=== PATIENT | male | born 1965 | race Caucasian/White ===

== ENCOUNTER 2020-10-21 10:52 | Outpatient (CLI) | payer OTHER, SELFPAY | END 2020-10-21 10:53 | disposition home or self-care (01) | LOC: RAD 10-22 20:24 | PROVIDERS: Family Provider Nurse Practitioner; PCP Nurse Practitioner; Visit Provider Internal Medicine Rheumatology | DX: M1A.9XX1 Chronic gout, unspecified, with tophus (tophi) (principal); M19.90 Unspecified osteoarthritis, unspecified site; Z79.899 Other long term (current) drug therapy; Z11.59 Encounter for screening for other viral diseases; Z11.1 Encounter for screening for respiratory tuberculosis; N18.30 Chronic kidney disease, stage 3 unspecified; Z71.89 Other specified counseling | CPT/HCPCS: 99204 ==

== ENCOUNTER 2020-10-21 12:24 | Outpatient (CLI) | payer OTHER, SELFPAY ==
--- NOTE | 2020-10-21 12:38 | XRR_ITS ---
PROCEDURE INFORMATION: Exam: XR Left Hand Exam date and time: 10/21/2020 12:38 PM Age: 55 years old Clinical indication: Condition or disease; Other: Gout, ; additional info: M10.9 - gout, unspecified TECHNIQUE: Imaging protocol: XR Left hand. Views: 3 or more views. COMPARISON: No relevant prior studies available. FINDINGS: Bones/joints: Negative for acute bony abnormality. Soft tissues: A few scattered soft tissue metallic foreign bodies seen in the proximal index finger and near the 1st metacarpal. XR/XR hand LT min 3V* [id number] IMPRESSION: 1. No acute bone abnormality. 2. Metallic densities near the proximal index finger and 1st metacarpal
--- NOTE | 2020-10-21 12:38 | XRR_ITS ---
PROCEDURE INFORMATION: Exam: XR Right Foot Exam date and time: 10/21/2020 12:38 PM Age: 55 years old Clinical indication: Condition or disease; Other: Gout, ; additional info: M10.9 - gout, unspecified TECHNIQUE: Imaging protocol: XR Right foot. Views: 3 or more views. COMPARISON: No relevant prior studies available. FINDINGS: Bones/joints: Normal. Soft tissues: Normal. XR/XR foot RT min 3V* [id number] IMPRESSION: No acute findings.
--- NOTE | 2020-10-21 12:38 | XRR_ITS ---
PROCEDURE INFORMATION: Exam: XR Right Hand Exam date and time: 10/21/2020 12:38 PM Age: 55 years old Clinical indication: Condition or disease; Other: Gout; Additional info: M10.9 - gout, unspecified TECHNIQUE: Imaging protocol: XR Right hand. Views: 3 or more views. COMPARISON: No relevant prior studies available. FINDINGS: Bones/joints: Subchondral cyst is seen near the distal right radius corresponding to benign etiology. Soft tissues: Normal. XR/XR hand RT min 3V* [id number] IMPRESSION: 1. No acute bone abnormality 2. Subchondral bone cyst distal right radius.
--- NOTE | 2020-10-21 12:38 | XRR_ITS ---
PROCEDURE INFORMATION: Exam: XR Left Foot Exam date and time: 10/21/2020 12:38 PM Age: 55 years old Clinical indication: Condition or disease; Other: Gout, ; additional info: M10.9 - gout, unspecified TECHNIQUE: Imaging protocol: XR Left foot. Views: 3 or more views. COMPARISON: No relevant prior studies available. FINDINGS: Bones/joints: Negative for acute bony abnormality Soft tissues: Normal. XR/XR foot LT min 3V* [id number] IMPRESSION: No acute findings.
[2020-10-21 13:34] LABS: Basophils % 0.3 %; Eosinophils # 0.2 10^3/uL (0.0-0.8); Eosinophils % 2.8 %; Hematocrit 41.5 % (42.0-52.0); Hemoglobin 14.1 g/dL (11.7-16.6); Lymphocytes # 1.5 10^3/uL (0.8-4.8); Mean Corpuscular Hemoglobin 30.1 pg (28.0-34.0); Mean Corpuscular Volume 88.7 fl (80-94); Mean Platelet Volume 10.1 fL (7.4-10.4); Monocytes # 0.9 10^3/uL (0.2-0.9); Monocytes % 10.8 %; Neutrophils # 5.26 10^3/uL (1.8-7.7); Neutrophils % 66.6 %; Nucleated Red Blood Cells % 0 %; Platelet Count 254 10^3/cmm (130-400); Red Blood Count 4.68 10^6/uL (4.1-5.3); Red Cell Distribution Width 12.3 % (12.1-15.1); White Blood Count 7.9 10^3/uL (4.0-10.0)
[2020-10-21 13:52] LABS: Alanine Aminotransferase 17 U/L (0-41); Albumin Level 4.2 g/dL (3.5-5.2); Alkaline Phosphatase 101 IU/L (40-130); Aspartate Amino Transferase 15 U/L (0-40); C Reactive Protein 10.7 mg/L (0.0-4.9); Globulin 2.4 g/dL (1.3-4.6); Glomerular Filtration Rate 42.1 mL/min (90-130); Total Bilirubin 0.3 mg/dL (0.15-1.2); Total Protein 6.6 g/dL (6.6-8.7); Uric Acid 8.7 mg/dL (3.4-7.0)
[2020-10-21 14:08] LABS: 25 Hydroxy Vitamin D 19 ng/mL (30-100); Hepatitis B Core AB, Total Non-Reactive (Nonreactive); Hepatitis B Surface Antigen Non-Reactive (Nonreactive); Hepatitis C Virus Antibody Non-Reactive (Nonreactive)
[2020-10-21 14:30] LABS: Erythrocyte Sedimentation Rate 26 mm/hr (0-10)
[2020-10-23 09:52] LABS: Cyclic Citrullinated Peptide <16 UNITS
[2020-10-23 14:26] LABS: Quantiferon Mitogen 7.77 IU/mL; Quantiferon Nil 0.02 IU/mL; Quantiferon TB Gold NEGATIVE (NEGATIVE)
== END 2020-10-21 12:25 | disposition home or self-care (01) ==
PROVIDERS: PCP Nurse Practitioner; Visit Provider Internal Medicine Rheumatology
DX: M10.9 Gout, unspecified (principal); M19.90 Unspecified osteoarthritis, unspecified site; Z79.899 Other long term (current) drug therapy; Z11.59 Encounter for screening for other viral diseases; Z11.1 Encounter for screening for respiratory tuberculosis
CPT/HCPCS: 73130; 73630; 80076; 82306; 82565; 84550; 85025; 85651; 86140; 86431; 86480; 86704; 86803; 87340

== ENCOUNTER 2021-04-05 02:56 | Inpatient (IN) | payer OTHER, SELFPAY ==
[2021-04-05] VITALS (11 sets, daily range): BP systolic 139–159; BP diastolic 89–105; PULSE 48–64; RESP 12–20; TEMP 36.3–37.1; O2SAT 87–97; BMI 34.4
--- NOTE | 2021-04-05 03:19 | XRR_ITS ---
PROCEDURE INFORMATION: Exam: XR Chest Exam date and time: 04/05/2021 3:19 AM Age: 55 years old Clinical indication: Patient HX: C/O chest pain radiating into both shoulders. ; Additional info: Cp TECHNIQUE: Imaging protocol: XR of the chest. Views: 1 view. COMPARISON: No relevant prior studies available. FINDINGS: Lungs: Unremarkable. No consolidation. Pleural spaces: Unremarkable. No pleural effusion. No pneumothorax. Heart/Mediastinum: Unremarkable. No cardiomegaly. Bones/joints: Unremarkable. XR/XR chest 1V portable [id number] IMPRESSION: No acute findings.
--- NOTE | 2021-04-05 03:19 | ECG_ITS ---
[facility] Test Date: 2021-04-05 Pat Name: Emery Davenport Department: Room: Gender: Male Health Inspector: : 1965 Requested By: Dontrell Garcia Order Number: [id number] Tatum MD: Gregory Trujillo M.D. Measurements Intervals [place] Rate: 43 P: 34 NM: 165 QRS: -3 QRSD: 99 T: 55 QT: 478 QTc: 409 Interpretive Statements SINUS BRADYCARDIA No previous ECG available for comparison Electronically Signed On 04-07-2021 8:54:30 BLUEPRINT BLOCKER by Gregory Trujillo M.D. [id number]
--- NOTE | 2021-04-05 03:48 | PC.NURSE ---
patient received with c/o left chest and shoulder pain that started last night around 2100. reports pulling carpet last night prior to pain starting. reports taking prescriptions as directed for HTN. states nausea started at 0200. speech clear, sentences complete. gives short 1-2 work answers and many times the will answer for him.
[2021-04-05 03:55] LABS: Basophils % 0.2 %; Eosinophils # 0.2 10^3/uL (0.0-0.8); Eosinophils % 1.7 %; Hematocrit 46.7 % (42.0-52.0); Hemoglobin 15.7 g/dL (11.7-16.6); Lymphocytes # 2.7 10^3/uL (0.8-4.8); Lymphocytes % 21.3 %; Mean Corpuscular HGB Conc 33.6 g/dL (30.0-36.0); Mean Corpuscular Volume 89.1 fl (80-94); Mean Platelet Volume 10.1 fL (7.4-10.4); Monocytes # 0.9 10^3/uL (0.2-0.9); Monocytes % 7.5 %; Neutrophils # 8.61 10^3/uL (1.8-7.7); Neutrophils % 68.7 %; Nucleated Red Blood Cells % 0 %; Platelet Count 267 10^3/cmm (130-400); Red Blood Count 5.24 10^6/uL (4.1-5.3); Red Cell Distribution Width 12.5 % (12.1-15.1); White Blood Count 12.5 10^3/uL (4.0-10.0)
[2021-04-05 04:24] LABS: D Dimer 0.38 ug/mIFEU (0-0.59)
--- NOTE | 2021-04-05 04:27 | W.ED.CHESTPA ---
HPI - Chest Pain General: Chief Complaint: Chest Pain Stated Complaint: Possile Heart Attach Time Seen by Provider: 04/05/21 03:19 History of Present Illness: 55-year-old male with no prior history of coronary disease. He does have a history of hypertension. He began to have chest pain last night after pulling carpet. Pain continued despite rest. Pain is across his chest. It is nonradicular. He is nauseated and mildly short of breath. Minimal cough. No swelling to his extremities. MD complaint: chest pain Pertinent past history: other Onset (ago): hour(s) Timing of current episode: constant Prior episodes: No Onset: during exertion Pain location: substernal, left chest and right chest Pain radiation: none Severity: moderate Quality: aching Relieving factors: nothing Exacerbating factors: nothing Associated symptoms: Reports dyspnea and nausea; Deny abdominal pain, diaphoresis, fever(s), leg edema, palpitations or vomiting Treatment prior to arrival: none Risk Factors: Coronary artery disease risk factors: hypertension Review of Systems Const: Denies: fever(s) or diaphoresis Card: Denies: palpitations Resp: Reports: dyspnea GI: Reports: nausea; Denies: abdominal pain or vomiting [facility], [facility] ED PFSH: Medical History CKD (chronic kidney disease) stage 3, GFR 30-59 ml/min Gout, tophaceous High risk medication use Immunization counseling Inflammatory arthritis Family History Other CAD (coronary artery disease) Cancer Diabetes Gout Hypertension Denies family history of Rheumatoid arthritis Lupus Hyperlipidemia Chronic kidney disease (CKD) Lung disease Stroke Social History Smoking and tobacco status: never smoked Alcohol intake: never History of recent travel: No Physical Exam HENMT: COMMON NORMALS: normocephalic, atraumatic and Normal external nose present HEAD & SCALP: normocephalic and atraumatic NOSE: Normal external nose present and Normal nares present Eye: COMMON NORMALS: Equal, round and reactive pupils present and EOMs intact bilaterally PUPIL: Yes Equal, round and reactive pupils present Resp: COMMON NORMALS: normal respiratory effort, No use of accessory muscles and clear to auscultation bilaterally AUSCULTATION: clear to auscultation bilaterally Cardio: COMMON NORMALS: regular rate and regular rhythm RATE: regular rate RHYTHM: regular rhythm GI: COMMON NORMALS: Normal to inspection, nondistended, normoactive bowel sounds present and Soft to palpation PALPATION: Yes Soft to palpation Extremity: GENERAL: No edema Neuro: THEODORE COMA SCALE: document GCS findings [place] coma scale eye opening: Spontaneous Theodore coma scale verbal response: Orientated Theodore coma scale motor response: Obey commands Theodore coma scale total score: 15 Course Consultations: Consultation #1: angelo Time: 06:26 Vital Signs: Vital signs: Vital Signs Temperature 97.3 F L 04/05/21 02:58 Pulse Rate 48 L 04/05/21 02:58 Respiratory Rate 20 H 04/05/21 04:39 Blood Pressure 159/105 04/05/21 02:58 Pulse Oximetry 95 04/05/21 02:58 MDM - Chest Pain Medical Decision Making 55-year-old male presenting with chest pain. EKG shows a sinus bradycardia with mild ST depression, no ST elevation. [place] is normal. Creatinine is 2. Hemoglobin is normal. Chest x-ray is negative. First troponin is 17, with a delta of 4. Pain improved with nitro and morphine initially, but then returned. Nitroglycerin given again, and pain improved, but now returning again. Will place on nitroglycerin topically. He has had aspirin. Will observe. Echocardiogram is ordered. Lab Data : 04/05/21 03:33 04/05/21 03:33 Radiology Impressions Chest X-Ray 04/05/21 03:19 IMPRESSION: No acute findings. Laboratory Results WBC 12.5 10^3/uL (4.0-10.0) H 04/05/21 03:33 RBC 5.24 10^6/uL (4.1-5.3) 04/05/21 03:33 Hgb 15.7 g/dL (11.7-16.6) 04/05/21 03:33 Hct 46.7 % (42.0-52.0) 04/05/21 03:33 MCV 89.1 fl (80-94) 04/05/21 03:33 MCH 30.0 pg (28.0-34.0) 04/05/21 03:33 MCHC 33.6 g/dL (30.0-36.0) 04/05/21 03:33 RDW 12.5 % (12.1-15.1) 04/05/21 03:33 Plt Count 267 10^3/cmm (130-400) 04/05/21 03:33 MPV 10.1 fL (7.4-10.4) 04/05/21 03:33 Neut % (Auto) 68.7 % 04/05/21 03:33 Lymph % (Auto) 21.3 % 04/05/21 03:33 Sumner % (Auto) 7.5 % 04/05/21 03:33 Eos % (Auto) 1.7 % 04/05/21 03:33 Baso % (Auto) 0.2 % 04/05/21 03:33 Neut # (Auto) 8.61 10^3/uL (1.8-7.7) H 04/05/21 03:33 Lymph # (Auto) 2.7 10^3/uL (0.8-4.8) 04/05/21 03:33 [place]ner # (Auto) 0.9 10^3/uL (0.2-0.9) 04/05/21 03:33 Eos # (Auto) 0.2 10^3/uL (0.0-0.8) 04/05/21 03:33 Baso # (Auto) 0.0 10^3/uL (0.0-0.1) 04/05/21 03:33 Nucleated RBC % (auto) 0 % 04/05/21 03:33 Nucleated RBCs # 0.0 /100WBC 04/05/21 03:33 D-Dimer 0.38 ug/mIFEU (0-0.59) 04/05/21 03:33 Sodium 136 mmol/L (136-145) 04/05/21 03:33 Potassium 3.9 mmol/L (3.5-5.1) 04/05/21 03:33 Chloride 98 mmol/L (98-107) 04/05/21 03:33 Carbon Dioxide 23 mmol/L (22-29) 04/05/21 03:33 Anion Gap 18.9 (5-19) 04/05/21 03:33 BUN 30 mg/dL (6-20) H 04/05/21 03:33 Creatinine 2.1 mg/dL (0.7-1.2) H 04/05/21 03:33 GFR Calculation 33.0 mL/min (90-130) L 04/05/21 03:33 Glucose 327 mg/dL (65-115) H 04/05/21 03:33 Calculated Osmolality 301 mOsm/kg (285-295) H 04/05/21 03:33 Calcium 8.9 mg/dL (8.5-10.5) 04/05/21 03:33 Total Bilirubin 0.3 mg/dL (0.15-1.2) 04/05/21 03:33 AST 16 U/L (0-40) 04/05/21 03:33 ALT 21 U/L (0-41) 04/05/21 03:33 Alkaline Phosphatase 96 IU/L (40-130) 04/05/21 03:33 Troponin T Baseline 17 ng/L (0-15) H 04/05/21 03:33 Troponin T 120 Minute 20.95 ng/L (0-15) H 04/05/21 05:19 Delta Troponin T 3.95 ABS# (0-10) 04/05/21 05:19 NT-Pro-B Natriuret Pep 217 pg/mL (0-125) H 04/05/21 03:33 Total Protein 7.3 g/dL (6.6-8.7) 04/05/21 03:33 Albumin 4.3 g/dL (3.5-5.2) 04/05/21 03:33 Globulin 3.0 g/dL (1.3-4.6) 04/05/21 03:33 Discharge Plan Discharge Patient Disposition: Placed in Observation Clinical Impression: Chest pain Coding Level of Care Code ED Database Programmer for Geovany Fwd Exam Detailed
[2021-04-05 04:32] LABS: Troponin(5th) Baseline 17 ng/L (0-15)
[2021-04-05] MEDS: morphine 4 mg/mL SDV 1 mL IVP (04:39)
[2021-04-05] MEDS: aspirin 325 mg Tablet PO (04:39)
[2021-04-05] MEDS: nitroglycerin 0.4 mg sublingual Tablet SUBLINGUAL (04:40)
[2021-04-05] MEDS: ondansetron 2 mg/ML SDV 2 mL 4 MG IVP ×2 (04:40→19:29)
[2021-04-05 04:42] LABS: Alanine Aminotransferase 21 U/L (0-41); Albumin Level 4.3 g/dL (3.5-5.2); Alkaline Phosphatase 96 IU/L (40-130); Aspartate Amino Transferase 16 U/L (0-40); Blood Urea Nitrogen 30 mg/dL (6-20); Calcium 8.9 mg/dL (8.5-10.5); Carbon Dioxide 23 mmol/L (22-29); Chloride 98 mmol/L (98-107); Glucose 327 mg/dL (65-115); NT Pro B Type Natriuretic Pept 217 pg/mL (0-125); Osmolality Calculated 301 mOsm/kg (285-295); Sodium 136 mmol/L (136-145); Total Bilirubin 0.3 mg/dL (0.15-1.2); Total Protein 7.3 g/dL (6.6-8.7)
[2021-04-05 04:43] LABS: Anion Gap 18.9 (5-19); Potassium 3.9 mmol/L (3.5-5.1)
--- NOTE | 2021-04-05 05:19 | ECG_ITS ---
[facility] Test Date: 2021-04-05 Pat Name: Emery Davenport Department: Room: Gender: Male Bicycle Racer: : 1965 Requested By: Dontrell Garcia Order Number: [id number] Deepti MD: Gregory Trujillo M.D. Measurements Intervals [place] Rate: 55 P: 34 CA: 181 QRS: 33 QRSD: 98 T: 78 QT: 445 QTc: 428 Interpretive Statements SINUS BRADYCARDIA MINIMAL ST DEPRESSION [0.025+ mV ST DEPRESSION] No previous ECG available for comparison Electronically Signed On 04-07-2021 9:04:16 STICKER OPERATOR by Gregory Trujillo M.D. [id number]
[2021-04-05 05:59] LABS: Troponin 5 2HR 20.95 ng/L (0-15)
[2021-04-05 06:02] LABS: Troponin 5 2HR Delta 3.95 ABS# (0-10)
--- NOTE | 2021-04-05 06:25 | USCV_ITS ---
Emery Davenport Age: 55 Gender: M : 1965 Exam Date: 04/05/2021 08:01 Ordering Phys: Dontrell Jaramillo DO Technologist: Ashley Krueger Exam Location: [facility] Indication: chest pain BP: 139 / 89 HR: 61 Rhythm: Sinus Technical Quality: Adequate MEASUREMENTS (Male / Female) Normal Values 2D ECHO LV Diastolic Diameter PLAX 5.2 cm 4.2 - 5.9 / 3.9 - 5.3 cm LV Systolic Diameter PLAX 3.7 cm IVS Diastolic Thickness 1.1 cm 0.6 - 1.0 / 0.6 - 0.9 cm IVS Systolic Thickness 1.3 cm LVPW Diastolic Thickness 1.3 cm 0.6 - 1.0 / 0.6 - 0.9 cm LVPW Systolic Thickness 1.5 cm RV Chamber Size 3.9 cm LVOT Diameter 2.0 cm LV Ejection Fraction 2D Teich 54.9 % LV Ejection Fraction MOD 2C 51.3 % LV Ejection Fraction 2C AL 52.6 % LA Diameter 4.4 cm LA Width 4.3 cm LA Height 4.4 cm RA Width 3.1 cm RA Height 4.4 cm Aorta at Sinotubular Diameter 2.8 cm M-MODE Aortic Annulus Diameter 3.4 cm LA Ao Ratio MM 1.3 MV E Point Septal Separation 0.8 cm DOPPLER AV Peak Velocity 101.0 cm/s LVOT Peak Velocity 83.0 cm/s AV Area Cont Eq vti 2.7 cm squared AV Area Cont Eq pk 2.7 cm squared MV Area PHT 3.9 cm squared Mitral E to A Ratio 0.7 MV E' Velocity 36.5 cm/s Mitral E to MV E' Ratio 9.7 Mitral E to LV E' Lateral Ratio 9.3 Mitral E to LV E' Septal Ratio 10.1 TV Peak E Velocity 47.0 cm/s PV Peak Velocity 60.0 cm/s RV Acceleration Time 0.1 s RV Ejection Time 0.4 s RV AcT/ET 0.3 FINDINGS Left Ventricle Normal left ventricular size. LV systolic function is normal with EF of 50-55%. Regional wall motion abnormalities can not be accurately assessed because of poor ultrasonic windows. Grade 1 diastolic dysfunction Right Ventricle The right ventricle is normal in size and function. Right Atrium The right atrium is normal in size. Left Atrium The left atrium is normal in size. Mitral Valve Structurally normal mitral valve without significant stenosis or prolapse. There is no mitral regurgitation. Aortic Valve Structurally normal aortic valve without significant sclerosis or stenosis. There is no aortic regurgitation. Tricuspid Valve Structurally normal tricuspid valve without significant stenosis or regurgitation. Insufficient TR jet to calculate RVSP Pulmonic Valve Structurally normal pulmonic valve without significant stenosis. There is trace pulmonic regurgitation. Pericardium Normal pericardium without effusion. Aorta Normal ascending aorta dimension. CONCLUSIONS Technically limited quality echocardiogram because of poor ultrasonic windows. LV systolic function is normal with EF 50 to 55%. Regional wall motion abnormalities cannot be assessed because of poor ultrasonic windows. Grade 1 diastolic dysfunction is noted. Trace pulmonic regurgitation. Compared to prior echocardiogram from 12/07/2016, no significant changes are noted Gregory Trujillo MD (Electronically Signed) Final Date: 05 April 2021 17:41 S
[2021-04-05] MEDS: nitroglycerin 1 gm/inch oint Pkt 1.5 INCH TOPICAL (06:27)
--- NOTE | 2021-04-05 08:59 | PM.HP ---
Providers/Chief Complaint Admitting Physician: Keith Munoz MD Primary Care Provider: Lashaun Marcos APN Chief Complaint: Possile Heart Attach History of Present Illness Emery Davenport is a 55 year old male who presented today with chief complaint of chest pain. Patient is stating that recently he was trying to rip off carpet which was glued on the floor in his home. Yesterday when he was in the process of removing the carpet he started feeling some chest discomfort which she is describing as achy pain which was radiating towards his left shoulder from right. He attributed her symptoms to recent strenuous activity. He went to bed and woke up around 2 AM with chest discomfort and diaphoresis. He describes his chest pain as persistent and achy. It lasted for about 90 minutes, in the ER he was given 2 sublingual nitroglycerin and full dose aspirin, then he was put on nitro patch. He was hypertensive. He is stating that there is significant family history of coronary disease/MD among his uncles and paternal side in the 50s, he does not smoke or drink alcohol, does not use recreational drugs, no previous history of chest pain, coronary disease or MD. He consider himself less active for his age. He is denying shortness of breath, orthopnea, PND, fever, diarrhea. At the time my evaluation he was hypotensive blood pressure 165/90 mmHg, no chest pain, he had Nitropaste on his right side of chest, EKG reviewed, troponin reviewed, I requested echo We will discuss case with cardiology after his echo results Review of Systems Const: Denies: fever(s) Eyes: Denies: change in vision ENMT: Denies: throat pain Card: Reports: chest pain Resp: Denies: dyspnea GI: Denies: abdominal pain Musc: Denies: neck pain Neuro: Denies: headache(s) Psych: Denies: anxiety Endo: Denies: polyuria Dean/Lymph: Denies: easy bruising All/Imm: Denies: urticaria Medications/Allergies Home Medications Medication Instructions Recorded Confirmed Last Taken Type azelastine 137 mcg (0.1 %) nasal 1 spray INTRANASAL BID 09/05/20 04/05/21 Unknown History spray aerosol carvedilol 25 mg tablet 25 mg PO BID 09/05/20 04/05/21 Unknown History hydralazine 10 mg tablet 10 mg PO BID 09/05/20 04/05/21 Unknown History torsemide 10 mg tablet 10 mg PO DAILY 09/05/20 04/05/21 Unknown History fluticasone propionate 50 1 spray INTRANASAL BID 10/21/20 04/05/21 Unknown History mcg/actuation nasal spray,suspension (Allergy Relief (fluticasone)) nifedipine 30 mg tablet,extended 30 mg PO DAILY 10/21/20 04/05/21 Unknown History release omeprazole 20 mg capsule,delayed 20 mg PO DAILY #90 cap 12/16/20 04/05/21 Unknown Rx release prednisone 5 mg tablet 5 mg PO DAILY #90 tab 12/16/20 04/05/21 Unknown Rx prednisone 10 mg tablet See Rx Instructions PO .COMPLEX 02/24/21 04/05/21 Unknown Rx PRN #30 tab calcium phosphate,dibasic 77 1 tab PO DAILY 04/05/21 04/05/21 Unknown History mg-vitamin D3 400 unit tablet empagliflozin 10 mg tablet 10 mg PO DAILY 04/05/21 04/05/21 Unknown History (Jardiance) Allergies Allergy/AdvReac Type Severity Reaction Status Date / Time allopurinol Allergy Unknown Verified 04/05/21 08:28 colchicine Allergy vomiting Verified 04/05/21 08:28 fenofibrate Allergy GI Verified 04/05/21 08:28 intolerance gemfibrozil Allergy unknown Verified 04/05/21 08:28 hydrochlorothiazide Allergy unknown Verified 04/05/21 08:28 indomethacin Allergy unknown Verified 04/05/21 08:28 lisinopril Allergy cough Verified 04/05/21 08:28 lovastatin Allergy unknown Verified 04/05/21 08:28 valsartan Allergy unknown Verified 04/05/21 08:28 PFSH Acute PFSH: Medical History (Updated 04/05/21 @ 14:48 by Tiffany Choi MD) CKD (chronic kidney disease) stage 3, GFR 30-59 ml/min Diabetes Gout Gout, tophaceous High risk medication use Hypercholesteremia Hypertension Immunization counseling Inflammatory arthritis Kidney disease Surgical History (Updated 04/05/21 @ 14:48 by Tiffany Choi MD) No history of previous surgery Family History Other CAD (coronary artery disease) Cancer Diabetes Gout Hypertension Denies family history of Rheumatoid arthritis Lupus Hyperlipidemia Chronic kidney disease (CKD) Lung disease Stroke Social History Smoking and tobacco status: never smoked Alcohol intake: never History of recent travel: No Vitals/I&O/Wt Last Vital Signs Temp 97.3 F L 04/05/21 08:51 Pulse 55 L 04/05/21 08:51 Resp 12 04/05/21 08:51 BP 139/89 04/05/21 08:51 Pulse Ox 94 04/05/21 08:51 Weight last 48 hrs Weight 108.862 kg Physical Exam Narrative: Patient was laying comfortably in his bed at the time of my evaluation He had Nitropaste on right side of his chest Hypertensive urgency No active chest pain No shortness of breath saturating well on room air Nonfocal neuro exam Abdomen soft Healthy-appearing middle-aged male No active distress Nonfocal neuro exam EOMI, PERRLA Data : 04/05/21 03:33 04/05/21 03:33 A&P Assessment and plan (1) Unstable angina: Status: Acute Plan Unstable angina Troponin trending down, delta troponin noted EKG without significant significant for acute changes Sinus bradycardia, hold Coreg Check TSH Echo requested Considering significant family history I would discuss his case with differential repairer after echo results We will keep him n.p.o. after midnight Full code Hypertensive urgency: Adjust antibiotic regimen Optimization of risk factors for coronary disease D-dimer unremarkable Cardiac diet today Acute on chronic kidney disease, check A1c level Clinically looks euvolemic BNP not greater than 400 I would hold off on diuretics for now Attestations Medical Necessity Statement*: More than 2 midnights anticipated Time Spent in Patient Care: 35 minutes Coding Level of Care Code Acute Mainframe Programmer for Geovany Fwbrenden Diagnoses Unstable angina I20.0
--- NOTE | 2021-04-05 09:19 | ECG_ITS ---
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 Measurements Intervals [place] Rate: 57 P: 59 [place]: 172 QRS: 8 QRSD: 97 T: 49 QT: 413 QTc: 403 Interpretive Statements SINUS BRADYCARDIA POSSIBLE INFERIOR MYOCARDIAL INFARCTION , OF INDETERMINATE AGE [30 ms Q WAVE IN II/aVF] Compared to ECG 04/05/2021 05:13:29 Myocardial infarct finding now present ST (T wave) deviation no longer present Electronically Signed On 04-07-2021 9:03:43 PUMPER GAGER by Gregory Trujillo M.D. [id number]
[2021-04-05 10:39] LABS: Troponin 5 6HR 35.39 ng/L (0-15)
[2021-04-05 10:48] LABS: Troponin 5 6HR Delta 18.39 ng/L (0-12)
[2021-04-05 11:48] LABS: D Dimer <= 0.27 ug/mIFEU (0-0.59)
[2021-04-05] MEDS: hyDRALAzine 20 mg/mL INJ 1 mL 5 MG IVP (12:43)
[2021-04-05 13:01] LABS: Thyroid Stimulating Hormone 1.87 uIU/mL (0.27-4.20)
[2021-04-05] MEDS: hyDRALAzine 25 mg Tablet PO ×2 (15:36→20:10)
[2021-04-05 15:55] LABS: Chol HDL Ratio 8.56 mg/dL (1.0-5.00); Cholesterol 334 mg/dL (0-200); HDL Cholesterol 39 mg/dL (60-100); Triglycerides 691 mg/dL (0-150)
[2021-04-05 17:30] LABS: Estmated Average Glucose 260; Hemoglobin A1C 10.7 % (4.0-6.0)
[2021-04-05 18:18] LABS: LDL Cholesterol Direct 145 mg/dL (0-100)
--- NOTE | 2021-04-05 19:15 | P.CONIM_ITS ---
Providers/Reason For Consult Consulting Physician/Specialty*: Gregory Trujillo MD/ Cardiology Reason for Consult*: Chest pain Requesting Physician: Dr Choi Attending Physician: Tiffany Choi MD Primary Care Provider: Lashaun Marcos APN History of Present Illness History of Present Illness Emery Davenport is a 55 year old male with past medical history of hypertension presented to the hospital with episodes of chest pain. He had 2 episodes of chest pain that lasted more than 30 minutes. Complained of substernal pressure that radiated to the jaw and to the arms. He did not have any prior chest pain episodes and does not have cardiac history. Patient does have chronic kidney disease. His creatinine was 2.1 today. Troponins did not trend up significantly. EKG shows sinus bradycardia with heart rate of [address] depressions in lateral leads. Since coming to the hospital patient does not have any more chest pain. Review of Systems Const: Denies: fever(s) Eyes: Denies: change in vision ENMT: Denies: throat pain Card: Reports: chest pain Resp: Denies: dyspnea GI: Denies: abdominal pain Musc: Denies: neck pain Neuro: Denies: headache(s) Psych: Denies: anxiety Endo: Denies: polyuria Dean/Lymph: Denies: easy bruising All/Imm: Denies: urticaria Medications/Allergies Home Medications Medication Instructions Recorded Confirmed Last Taken Type azelastine 137 mcg (0.1 %) nasal 1 spray INTRANASAL BID 09/05/20 04/05/21 Unknown History spray aerosol carvedilol 25 mg tablet 25 mg PO BID 09/05/20 04/05/21 Unknown History hydralazine 10 mg tablet 10 mg PO BID 09/05/20 04/05/21 Unknown History torsemide 10 mg tablet 10 mg PO DAILY 09/05/20 04/05/21 Unknown History fluticasone propionate 50 1 spray INTRANASAL BID 10/21/20 04/05/21 Unknown History mcg/actuation nasal spray,suspension (Allergy Relief (fluticasone)) nifedipine 30 mg tablet,extended 30 mg PO DAILY 10/21/20 04/05/21 Unknown History release omeprazole 20 mg capsule,delayed 20 mg PO DAILY #90 cap 12/16/20 04/05/21 Unknown Rx release prednisone 5 mg tablet 5 mg PO DAILY #90 tab 12/16/20 04/05/21 Unknown Rx prednisone 10 mg tablet See Rx Instructions PO .COMPLEX 02/24/21 04/05/21 Unknown Rx PRN #30 tab calcium phosphate,dibasic 77 1 tab PO DAILY 04/05/21 04/05/21 Unknown History mg-vitamin D3 400 unit tablet empagliflozin 10 mg tablet 10 mg PO DAILY 04/05/21 04/05/21 Unknown History (Jardiance) Allergies Allergy/AdvReac Type Severity Reaction Status Date / Time allopurinol Allergy Unknown Verified 04/05/21 08:28 colchicine Allergy vomiting Verified 04/05/21 08:28 fenofibrate Allergy GI Verified 04/05/21 08:28 intolerance gemfibrozil Allergy unknown Verified 04/05/21 08:28 hydrochlorothiazide Allergy unknown Verified 04/05/21 08:28 indomethacin Allergy unknown Verified 04/05/21 08:28 lisinopril Allergy cough Verified 04/05/21 08:28 lovastatin Allergy unknown Verified 04/05/21 08:28 valsartan Allergy unknown Verified 04/05/21 08:28 Current Medications Generic Name Dose Route Start Last Admin Trade Name Freq PRN Reason Stop Dose Admin Hydralazine HCl 25 mg 04/05/21 15:00 04/05/21 15:36 Hydralazine 25 Mg Tablet PO 25 mg TID ROSA Administration PFSH Acute PFSH: Medical History CKD (chronic kidney disease) stage 3, GFR 30-59 ml/min Diabetes Gout Gout, tophaceous High risk medication use Hypercholesteremia Hypertension Immunization counseling Inflammatory arthritis Kidney disease Surgical History No history of previous surgery Family History Other CAD (coronary artery disease) Cancer Diabetes Gout Hypertension Denies family history of Rheumatoid arthritis Lupus Hyperlipidemia Chronic kidney disease (CKD) Lung disease Stroke Social History Smoking and tobacco status: never smoked Alcohol intake: never History of recent travel: No Vitals/I&O/Wt Last Vital Signs Temp 97.9 F 04/05/21 16:00 Pulse 55 L 04/05/21 16:00 Resp 16 04/05/21 16:00 BP 158/98 04/05/21 16:00 Pulse Ox 97 04/05/21 16:00 04/05/21 04/05/21 04/05/21 06:59 14:59 22:59 Intake Total 240 / 240 Balance 240 / 240 Weight last 48 hrs Weight 240 lb Weight 240 lb Physical Exam Narrative: GENERAL: Patient is alert, awake and oriented x3. [] NECK: No jugular vein distension. [] HEENT: No cyanosis. No icterus. No pallor. [] HEART: Regular S1 and S2. No murmur, rub or gallop. [] LUNGS: Clear to auscultate bilaterally. [] ABDOMEN: Soft, nontender and nondistended. Positive bowel sounds. No guarding, rebound or tenderness. [] CENTRAL NERVOUS SYSTEM: Grossly nonfocal. [] EXTREMITIES: Lower extremities with 1+ edema bilaterally. Pulses palpable in the lower extremities, both dorsalis pedis and posterior tibial. [] Data : 04/06/21 04:44 04/06/21 04:44 A&P Assessment and plan (1) Chest pain: Status: Acute (2) CKD (chronic kidney disease) stage 3, GFR 30-59 ml/min: Status: Acute (3) Hypertension: Status: Acute Plan Presented with 2 episodes of typical chest pain. Patient troponins have not trended up significantly. No more chest pain episodes since coming to the hospital. Echocardiogram shows preserved LV systolic function. Regional wall motion abnormalities can not be assessed because of poor ultrasonic windows. Given patient's chronic kidney disease, ischemic work-up with stress test initially is recommended. Continue aspirin. Telemetry monitoring. Blood pressure control with oral medications. Thank you for involving us with care of this patient. We will continue to follow. Please call with questions. Coding Level of Care Code Acute Labeling Associate for Geovany Aceves Diagnoses Chest pain R07.9 CKD (chronic kidney disease) stage 3, GFR 30-59 ml/min N18.30 Hypertension I10
[2021-04-06] VITALS (12 sets, daily range): BP systolic 110–165; BP diastolic 75–104; PULSE 50–77; RESP 16–18; TEMP 36.4–37.2; O2SAT 91–98
[2021-04-06] MEDS: fluticasone nasal spray 16gm Btl 2 SPRAY NASAL ×3 (05:09→17:32)
[2021-04-06 05:17] LABS: Basophils % 0.1 %; Eosinophils # 0.1 10^3/uL (0.0-0.8); Eosinophils % 0.4 %; Hematocrit 44.8 % (42.0-52.0); Hemoglobin 14.4 g/dL (11.7-16.6); Lymphocytes # 1.6 10^3/uL (0.8-4.8); Lymphocytes % 12.3 %; Mean Corpuscular HGB Conc 32.1 g/dL (30.0-36.0); Mean Corpuscular Hemoglobin 29.1 pg (28.0-34.0); Mean Corpuscular Volume 90.7 fl (80-94); Mean Platelet Volume 10.3 fL (7.4-10.4); Monocytes # 1.1 10^3/uL (0.2-0.9); Monocytes % 8.2 %; Neutrophils # 10.24 10^3/uL (1.8-7.7); Neutrophils % 78.7 %; Nucleated Red Blood Cells % 0 %; Platelet Count 238 10^3/cmm (130-400); Red Blood Count 4.94 10^6/uL (4.1-5.3); Red Cell Distribution Width 12.6 % (12.1-15.1)
[2021-04-06 05:36] LABS: Anion Gap 17.2 (5-19); Blood Urea Nitrogen 23 mg/dL (6-20); C Reactive Protein 12.8 mg/L (0.0-4.9); Calcium 8.8 mg/dL (8.5-10.5); Carbon Dioxide 23 mmol/L (22-29); Chloride 98 mmol/L (98-107); Glomerular Filtration Rate 42.1 mL/min (90-130); Glucose 285 mg/dL (65-115); Magnesium 2.3 mg/dL (1.7-2.3); Osmolality Calculated 292 mOsm/kg (285-295); Potassium 4.2 mmol/L (3.5-5.1); Sodium 134 mmol/L (136-145)
--- NOTE | 2021-04-06 06:21 | PC.NURSE ---
Addendum entered by Brittany Stovall LPN 04/06/21 06:30: Did have c/o nausea in the evening and received good relief with Zofran given. No emesis Original Note: SHIFT SUMMARY Says he didn't sleep alot tonight. Has had no c/o chest pain. Ham Sawyer came to see pt last evening. Had c/o nasal congestion this am. Says wakes up congested most mornings. Uses Flonase and ordered was received for this.
[2021-04-06] MEDS: ondansetron 2 mg/ML SDV 2 mL 4 MG IVP ×2 (06:29→23:56)
[2021-04-06] MEDS: sennosides-docusate Tablet 1 TAB PO (08:32)
[2021-04-06] MEDS: predniSONE 5 mg Tablet PO (08:32)
[2021-04-06] MEDS: aspirin 81 mg EC Tablet PO (08:32)
[2021-04-06] MEDS: hyDRALAzine 25 mg Tablet 50 MG PO (08:32)
[2021-04-06] MEDS: pantoprazole DR 40 mg Tablet PO (08:32)
[2021-04-06] MEDS: NIFEdipine ER (24 hr) 30 mg Tablet 60 MG PO (08:33)
--- NOTE | 2021-04-06 10:05 | P.PN_ITS ---
Subjective Subjective: Patient is overall doing well. He has not experienced more chest pain episodes since coming to the hospital. Plan for stress test tomorrow. Vitals/I&O/Wt Last Vital Signs Temp 98.2 F 04/06/21 08:00 Pulse 62 04/06/21 08:00 Resp 18 04/06/21 08:00 BP 163/104 04/06/21 08:00 Pulse Ox 96 04/06/21 08:00 04/05/21 04/06/21 04/06/21 22:59 06:59 14:59 Intake Total 120 / 360 360 / 720 240 / 240 Balance 120 / 360 360 / 720 240 / 240 Weight last 48 hrs Weight 240 lb Weight 240 lb Physical Exam Narrative: GENERAL: Patient is alert, awake and oriented x3. [] NECK: No jugular vein distension. [] HEENT: No cyanosis. No icterus. No pallor. [] HEART: Regular S1 and S2. No murmur, rub or gallop. [] LUNGS: Clear to auscultate bilaterally. [] ABDOMEN: Soft, nontender and nondistended. Positive bowel sounds. No guarding, rebound or tenderness. [] CENTRAL NERVOUS SYSTEM: Grossly nonfocal. [] EXTREMITIES: Lower extremities with 1+ edema bilaterally. Pulses palpable in the lower extremities, both dorsalis pedis and posterior tibial. [] Data : 04/06/21 04:44 04/06/21 04:44 A&P Assessment and plan (1) Chest pain: Status: Acute (2) CKD (chronic kidney disease) stage 3, GFR 30-59 ml/min: Status: Acute (3) Hypertension: Status: Acute Plan Presented with 2 episodes of typical chest pain. Patient troponins have not trended up significantly. No more chest pain episodes since coming to the hospital. Echocardiogram shows preserved LV systolic function. Regional wall motion abnormalities can not be assessed because of poor ultrasonic windows. Creatinine has improved today to 1.7. Plan for stress test tomorrow. Based on results of stress test, will decide on coronary angiogram. Continue aspirin. Telemetry monitoring. Blood pressure control with oral medications. Thank you for involving us with care of this patient. We will continue to follow. Please call with questions. Attestations Medical Necessity Statement*: Care expected to cross 2 midnights. Coding Level of Care Code Acute Mill Operator Head for Geovany Aceves Diagnoses Chest pain R07.9 CKD (chronic kidney disease) stage 3, GFR 30-59 ml/min N18.30 Hypertension I10
--- NOTE | 2021-04-06 10:16 | PM.PN ---
Subjective Subjective: Patient is not complaining of any chest pain, Nitropaste has been removed, still hypertensive, readjusted his antihypertensive regimen this morning as well Plan for stress test tomorrow morning Echo unremarkable Bradycardia overnight during sleep Added clonidine, increase the dose of hydralazine, increase nifedipine dose Vitals/I&O/Wt Last Vital Signs Temp 98.2 F 04/06/21 08:00 Pulse 62 04/06/21 08:00 Resp 18 04/06/21 08:00 BP 163/104 04/06/21 08:00 Pulse Ox 96 04/06/21 08:00 04/05/21 04/06/21 04/06/21 22:59 06:59 14:59 Intake Total 120 / 360 360 / 720 240 / 240 Balance 120 / 360 360 / 720 240 / 240 Weight last 48 hrs Weight 108.862 kg Weight 108.862 kg Physical Exam Narrative: Patient laying flat No active chest pain or shortness of breath Saturating well on room air Abdomen soft Euvolemic EOMI, PERRLA Nonfocal neuro exam Data : 04/06/21 04:44 04/06/21 04:44 A&P Assessment and plan (1) Hypertension: Status: Acute (2) Unstable angina: Status: Acute (3) CKD (chronic kidney disease) stage 3, GFR 30-59 ml/min: Status: Acute (4) Inflammatory arthritis: Status: Acute Plan Echo is nonconclusive No active chest pain or shortness of breath This morning he was on room air Added clonidine, increase the dose of hydralazine and nifedipine Cannot add ROOPA or ARB because of chronic kidney disease, because of bradycardia I am reluctant to add AV leydi blocking agent for now Stress test tomorrow morning N.p.o. after midnight D-dimer unremarkable, Chronic kidney disease creatinine seems around baseline 1.7 Patient does follow-up with Dr. Manjarrez outpatient We will follow up with cardiology recommendations Attestations Medical Necessity Statement*: Continue medical management Time Spent in Patient Care: 15min Coding Level of Care Code Acute Crepe Machine Operator for Geovany Fwd Diagnoses Hypertension I10 Unstable angina I20.0 CKD (chronic kidney disease) stage 3, GFR 30-59 ml/min N18.30 Inflammatory arthritis M19.90
--- NOTE | 2021-04-06 10:17 | ECG_ITS ---
[facility] Test Date: 2021-04-07 Pat Name: Emery Davenport Department: Room: 254 Gender: Male Internal Sales: Marynilesh Fragoson : 1965 Requested By: Tiffany Choi Order Number: [id number] Deepti MD: Gregory Trujillo M.D. Interpretive Statements NAME OF STUDY: LEXISCAN SESTAMIBI STRESS TEST INDICATION: [Angina, ] Procedure: At the baseline, the blood pressure was 112/80 mmHg with a heart rate of 70 bpm. The electrocardiogram showed normal sinus rhythm, normal axis with normal ST and T's. The Lexiscan was infused over a period of 20 seconds. A total of 0.4 mg of Lexiscan was infused. The stress phase was continued for a total of 5 minutes. Heart rate was at the end of stress phase was 81 bpm and a blood pressure of 102/74 mmHg. The EKG at the peak infusion revealed since normal sinus rhythm with no significant ST-T wave changes. Sestamibi was injected 20 seconds after the Lexiscan infusion. Blood pressure at the end of recovery phase was 105/74 mmHg with a heart rate of 80 bpm. Conclusion: 1. Normal EKG response to Lexiscan infusion 2. No Lexiscan induced chest pain or cardiac arrhythmia. 3. Normal blood pressure and heart rate response. 4. Sestamibi/sestamibi perfusion scan pending; see separate report. Electronically Signed On 04-16-2021 17:35:44 MAINTENANCE TEAM LEADER by Gregory Trujillo M.D. [id number]
[2021-04-06] MEDS: cloNIDine 0.1 mg Tablet PO ×2 (11:44→17:32)
[2021-04-06] MEDS: TORSEmide 20 mg Tablet 10 MG PO (11:45)
[2021-04-06] MEDS: hyDRALAzine 50 mg Tablet 100 MG PO ×2 (15:52→21:44)
[2021-04-07 00:24] VITALS: BP 125/82; PULSE 70; RESP 17; TEMP 36.7; O2SAT 92
[2021-04-07 04:00] VITALS: BP 120/77; PULSE 69; RESP 17; TEMP 36.8; O2SAT 95
[2021-04-07 05:41] LABS: Anion Gap 17.1 (5-19); Blood Urea Nitrogen 24 mg/dL (6-20); Calcium 9.4 mg/dL (8.5-10.5); Carbon Dioxide 24 mmol/L (22-29); Chloride 96 mmol/L (98-107); Glomerular Filtration Rate 39.4 mL/min (90-130); Glucose 212 mg/dL (65-115); Osmolality Calculated 286 mOsm/kg (285-295); Potassium 4.1 mmol/L (3.5-5.1); Sodium 133 mmol/L (136-145)
[2021-04-07 06:00] VITALS: PULSE 82
[2021-04-07] MEDS: regadenoson 0.4 Mg/5 ml Syringe IVP (08:13)
[2021-04-07 08:29] VITALS: BP 105/74; PULSE 80
--- NOTE | 2021-04-07 09:50 | PM.PN ---
Subjective Subjective: Patient stays chest pain free. Stress test shows prior infarct in the inferior and inferoseptal tobin. Vitals/I&O/Wt Last Vital Signs Temp 98.2 F 04/07/21 04:00 Pulse 80 04/07/21 08:29 Resp 17 04/07/21 04:00 BP 105/74 04/07/21 08:29 Pulse Ox 95 04/07/21 04:00 04/06/21 04/07/21 04/07/21 22:59 06:59 14:59 Intake Total 600 / 1080 Balance 600 / 1080 Weight last 48 hrs Weight 240 lb Physical Exam Narrative: GENERAL: Patient is alert, awake and oriented x3. [] NECK: No jugular vein distension. [] HEENT: No cyanosis. No icterus. No pallor. [] HEART: Regular S1 and S2. No murmur, rub or gallop. [] LUNGS: Clear to auscultate bilaterally. [] ABDOMEN: Soft, nontender and nondistended. Positive bowel sounds. No guarding, rebound or tenderness. [] CENTRAL NERVOUS SYSTEM: Grossly nonfocal. [] EXTREMITIES: Lower extremities with 1+ edema bilaterally. Pulses palpable in the lower extremities, both dorsalis pedis and posterior tibial. [] Data : 04/06/21 04:44 04/07/21 04:52 A&P Assessment and plan (1) Chest pain: Status: Resolved (2) CKD (chronic kidney disease) stage 3, GFR 30-59 ml/min: Status: Resolved (3) Hypertension: Status: Resolved Plan Presented with 2 episodes of typical chest pain. Patient troponins have not trended up significantly. No more chest pain episodes since coming to the hospital. Echocardiogram shows preserved LV systolic function. Regional wall motion abnormalities can not be assessed because of poor ultrasonic windows. 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 Given his chronic kidnet disease and no large area of ischemia, we will treat him medically. Had a detailed discussion about the test results Telemetry monitoring. Blood pressure control with oral medications. Thank you for involving us with care of this patient. Patient is stable to be discharged from cardiology standpoint. Please call with questions Attestations Medical Necessity Statement*: Care expected to cross 2 midnights. Coding Level of Care Code Acute Audit Control Clerk for Geovany Aceves Diagnoses Chest pain R07.9 CKD (chronic kidney disease) stage 3, GFR 30-59 ml/min N18.30 Hypertension I10
[2021-04-07] MEDS: TORSEmide 20 mg Tablet 10 MG PO (10:09)
[2021-04-07] MEDS: NIFEdipine ER (24 hr) 30 mg Tablet 60 MG PO (10:10)
[2021-04-07] MEDS: pantoprazole DR 40 mg Tablet PO (10:10)
[2021-04-07] MEDS: hyDRALAzine 50 mg Tablet 100 MG PO (10:10)
[2021-04-07 10:11] VITALS: BP 105/74
[2021-04-07] MEDS: aspirin 81 mg EC Tablet PO (10:11)
[2021-04-07] MEDS: predniSONE 5 mg Tablet PO (10:11)
[2021-04-07] MEDS: sennosides-docusate Tablet 1 TAB PO (10:11)
[2021-04-07] MEDS: cloNIDine 0.1 mg Tablet PO (10:11)
[2021-04-07] MEDS: fluticasone nasal spray 16gm Btl 2 SPRAY NASAL (10:15)
--- NOTE | 2021-04-07 10:17 | NMCV_ITS ---
NM flaco perf SPECT r/s* [id number] Emery Davenport Age: 55 Gender: M : 1965 Exam Date: 04/07/2021 07:01 Ordering Phys: Tiffany Choi MD Technologist: HERNANDEZ Delgado Exam Location: [facility] Indications: CHEST PAIN STRESS TEST Please [facility] IMAGE PROTOCOL Rest/Stress 1 Lexiscan Day Radiopharmaceutical Dose (mCi) Administration Site Administered by Rest: Tc-99m 11.0 IV HERNANDEZ Lezama Sestamibi Stress:Tc-99m 33.0 IV HERNANDEZ Lezama Sestamibi Rest: 07-Apr-2021 60 Discovery 630 Stress: 07-Apr-2021 30 Discovery 630 0.4mg Lexiscan. Images obtained in supine and prone position. SPECT RESULTS Technical Quality: Excellent Raw Data Analysis: Normal Image Corrections: No attenuation or motion correction applied Summed Stress Score: 8 Summed Rest Score: 8 Summed Difference Score: 1 PERFUSION FINDINGS There is a large in size, partially reversible perfusion defect in the inferior and inferoseptal tobin. This is consistent with prior infarct with [place]-infarct ischemia. FUNCTIONAL RESULTS (calculated via Gated SPECT) Stress Image LV EF (%): 52 Stress EDV (mL):114 TID: 0.95 Stress ESV (mL):55 FUNCTIONAL FINDINGS: There is normal left ventricular systolic function. IMPRESSIONS 1. Abnormal myocardial perfusion imaging with prior infarct and [place]-infarct ischemia noted in the inferior and inferoseptal tobin. 2. LV systolic function is normal Gregory Trujillo MD (Electronically Signed) Final Date: 07 April 2021 09:44 S
--- NOTE | 2021-04-07 10:35 | PC.CHAP ---
Pastoral Care Encounter/Spiritual Assessment Type of Contact [] Declined ceramist visit [] Patient/Family/Request visit [] Outpatient visit [] Follow-up visit [] Physician referral [] Code/Alert x[x] Routine visit [] Staff referral [] Actively dying [] Patient sleeping [] Family support [] [x] Out of room [] Palliative care [] [] Receiving care in room [] Pre-surgical visit [] Trauma [] Long length of stay [] ICU visit [] Other: Relational/Emotional Strength [] Patient feels connected with others/family/visitors/staff [] Distress [] Loneliness/isolation [] Abandonment Spirituality of Patient [] Person of Lynette [] Attends Restorationism of their Lynette [] Believes in Prayer [] Reads Bible or Jew materials [] There are Spiritual issues to be addressed Plugman Interventions [] Prayer [] Active listening [] Non-anxious presence [] Spiritual/emotional support [] Crisis/trauma care [] Spiritual counseling [] Bereavement support [] Provided bereavement packet [] Provided Bible/devotional materials [] Provided toy/stuffed animal, coloring book to patient or family member [] Provided Communion [] Anointing/[place] [] Salvation [] Completed spiritual assessment [] Other: Impact on Illness or Injury [] Angry [] Fearful [] Anxious [] Often cries [] Exhaustion [] Unable to work [] Unable to attend advent [] Unable to walk/stand [] Unable to read [] Unable to drive [] Unable to eat/drink [] Unable to sleep [] Unable to be with family [] Patient intubated [] Other: Summary Time spent with patient
--- NOTE | 2021-04-07 10:42 | P.DS_ITS ---
Discharge Providers Date of Admission: 04/05/21 06:29 Date of Discharge: April 07, 2021 Attending Provider at Admission: Keith Munoz MD Attending Provider at Discharge: Tiffany Choi MD Primary Care Provider: Lashaun Marcos APN Diagnoses at Discharge Discharge Diagnosis (1) Chest pain: Status: Acute (2) CKD (chronic kidney disease) stage 3, GFR 30-59 ml/min: Status: Acute (3) Hypertension: Status: Acute Reason for Visit Reason for Visit: [facility] Att[facility] Hospital Course Hospital Course Patient was admitted for management evaluation of unstable angina, his symptoms are consistent with typical angina. 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 Dr. Trujillo counseled patient to optimize his risk factors and asked him to come back to the ED in case of worsening of symptoms in future. His symptoms aggravated with hypertensive urgency. He responded very well to Nitropaste and after adequate reduction of blood pressure. I have increased the dose of hydralazine and nifedipine. Given clonidine only to be used as as needed. He cannot take lisinopril or losartan because of chronic kidney disease and Coreg dose was decreased secondary to bradycardia. Lowest heart rate during hospitalization detected 50. No change in hemodynamics with bradycardia noted. His heart rate improved after discontinuing Coreg. I have given him outpatient follow-up with Dr. Manjarrez and cardiology. Physical Exam Narrative: Patient laying flat No active chest pain or shortness of breath Saturating well on room air Abdomen soft Euvolemic EOMI, PERRLA Nonfocal neuro exam Discharge Data Studies Completed and Pending Completed Studies During Hospitalization Category Date Time Status Sestamibi Stress Test Request Routine Exams 04/06/21 10:17 Draft XR chest 1V portable [id number] Stat Exams 04/05/21 03:19 Completed NM flaco perf SPECT r/s* [id number] Routine Nuc Med 04/07/21 10:17 Completed CV. echo complete* [id number] Routine Ultrasound 04/05/21 06:25 Completed Radiology Impressions Chest X-Ray 04/05/21 03:19 IMPRESSION: No acute findings. Laboratory Results WBC 13.0 10^3/uL (4.0-10.0) H 04/06/21 04:44 RBC 4.94 10^6/uL (4.1-5.3) 04/06/21 04:44 Hgb 14.4 g/dL (11.7-16.6) 04/06/21 04:44 Hct 44.8 % (42.0-52.0) 04/06/21 04:44 MCV 90.7 fl (80-94) 04/06/21 04:44 MCH 29.1 pg (28.0-34.0) 04/06/21 04:44 MCHC 32.1 g/dL (30.0-36.0) 04/06/21 04:44 RDW 12.6 % (12.1-15.1) 04/06/21 04:44 Plt Count 238 10^3/cmm (130-400) 04/06/21 04:44 MPV 10.3 fL (7.4-10.4) 04/06/21 04:44 Neut % (Auto) 78.7 % 04/06/21 04:44 Lymph % (Auto) 12.3 % 04/06/21 04:44 Anderson % (Auto) 8.2 % 04/06/21 04:44 Eos % (Auto) 0.4 % 04/06/21 04:44 Baso % (Auto) 0.1 % 04/06/21 04:44 Neut # (Auto) 10.24 10^3/uL (1.8-7.7) H 04/06/21 04:44 Lymph # (Auto) 1.6 10^3/uL (0.8-4.8) 04/06/21 04:44 Anderson # (Auto) 1.1 10^3/uL (0.2-0.9) H 04/06/21 04:44 Eos # (Auto) 0.1 10^3/uL (0.0-0.8) 04/06/21 04:44 Baso # (Auto) 0.0 10^3/uL (0.0-0.1) 04/06/21 04:44 Nucleated RBC % (auto) 0 % 04/06/21 04:44 Nucleated RBCs # 0.0 /100WBC 04/06/21 04:44 D-Dimer <= 0.27 ug/mIFEU (0-0.59) 04/05/21 11:00 Sodium 133 mmol/L (136-145) L 04/07/21 04:52 Potassium 4.1 mmol/L (3.5-5.1) 04/07/21 04:52 Chloride 96 mmol/L (98-107) L 04/07/21 04:52 Carbon Dioxide 24 mmol/L (22-29) 04/07/21 04:52 Anion Gap 17.1 (5-19) 04/07/21 04:52 BUN 24 mg/dL (6-20) H 04/07/21 04:52 Creatinine 1.8 mg/dL (0.7-1.2) H 04/07/21 04:52 GFR Calculation 39.4 mL/min (90-130) L 04/07/21 04:52 Glucose 212 mg/dL (65-115) H 04/07/21 04:52 Estimat Average Glucose 260 04/05/21 03:45 Hemoglobin A1c 10.7 % (4.0-6.0) H 04/05/21 03:45 Calculated Osmolality 286 mOsm/kg (285-295) 04/07/21 04:52 Calcium 9.4 mg/dL (8.5-10.5) 04/07/21 04:52 Magnesium 2.3 mg/dL (1.7-2.3) 04/06/21 04:44 Total Bilirubin 0.3 mg/dL (0.15-1.2) 04/05/21 03:33 AST 16 U/L (0-40) 04/05/21 03:33 ALT 21 U/L (0-41) 04/05/21 03:33 Alkaline Phosphatase 96 IU/L (40-130) 04/05/21 03:33 Troponin T Baseline 17 ng/L (0-15) H 04/05/21 03:33 Troponin T 120 Minute 20.95 ng/L (0-15) H 04/05/21 05:19 Delta Troponin T 3.95 ABS# (0-10) 04/05/21 05:19 Troponin T Hi Sens 6Hr 35.39 ng/L (0-15) H 04/05/21 09:45 Troponin T Hi Sens 6Hr Delta 18.39 ng/L (0-12) H* 04/05/21 09:45 C-Reactive Protein 12.8 mg/L (0.0-4.9) H 04/06/21 04:44 NT-Pro-B Natriuret Pep 217 pg/mL (0-125) H 04/05/21 03:33 Total Protein 7.3 g/dL (6.6-8.7) 04/05/21 03:33 Albumin 4.3 g/dL (3.5-5.2) 04/05/21 03:33 Globulin 3.0 g/dL (1.3-4.6) 04/05/21 03:33 Triglycerides 691 mg/dL (0-150) H 04/05/21 03:45 Cholesterol 334 mg/dL (0-200) H 04/05/21 03:45 LDL Cholesterol Direct 145 mg/dL (0-100) H 04/05/21 03:45 LDL Cholesterol, Calc Not Reportable 04/05/21 03:45 HDL Cholesterol 39 mg/dL (60-100) L 04/05/21 03:45 LDL/HDL Ratio Not Reportable 04/05/21 03:45 Cholesterol/HDL Ratio 8.56 mg/dL (1.0-5.00) H 04/05/21 03:45 TSH 1.87 uIU/mL (0.27-4.20) 04/05/21 05:19 Vitals Last Vital Signs Temp 98.2 F 04/07/21 04:00 Pulse 80 04/07/21 08:29 Resp 17 04/07/21 04:00 BP 105/74 04/07/21 10:11 Pulse Ox 95 04/07/21 04:00 Discharge Plan Discharge Patient Disposition: Home Condition: Stable Prescriptions: New hydralazine 50 mg tablet 50 mg PO TID Qty: 90 3RF nifedipine 60 mg tablet extended release 24hr 60 mg PO DAILY Qty: 90 3RF clonidine HCl 0.1 mg tablet 0.1 mg PO Q8H PRN (Reason: hypertensive emergency) Qty: 30 0RF Rx Instructions: Despite hydralazine and nifedipine if blood pressure > 180/100mmhg then take clonidine Coreg 6.25 mg tablet 6.25 mg PO BID Qty: 60 3RF Rx Instructions: must administer with a meal/food Continued fluticasone propionate [Allergy Relief (fluticasone)] 50 mcg/actuation spray,suspension 1 spray intranasal BID 0RF Rx Instructions: administer into each nostril azelastine 137 mcg (0.1 %) aerosol,spray 1 spray intranasal BID 0RF Rx Instructions: administer into each nostril torsemide 10 mg tablet 10 mg PO DAILY 0RF omeprazole 20 mg capsule,delayed release(DR/EC) 20 mg PO DAILY Qty: 90 1RF prednisone 5 mg tablet 5 mg PO DAILY Qty: 90 1RF prednisone 10 mg tablet See Rx Instructions PO .COMPLEX PRN (Reason: joint pain flare) Qty: 30 1RF Rx Instructions: take 1-2 tabs daily for 3-5 days joint pain flare PO PRN; for 3-5 days joint pain flare PO daily; Jardiance 10 mg Tablet 10 mg PO DAILY 0RF Discontinued nifedipine 30 mg tablet extended release 30 mg PO DAILY 0RF carvedilol 25 mg tablet 25 mg PO BID 0RF Rx Instructions: must administer with a meal/food hydralazine 10 mg tablet 10 mg PO BID 0RF Vitamin D (with calcium) 77-400 mg-unit Tablet 1 tab PO DAILY 0RF Discharge Orders: Discharge Order (Routine); Ordered 04/07/21 Ordered By: Tiffany Choi Referrals: Lashaun Marcos APN [Primary Care Provider] - 04/09/21 11:00 am Rahul Manjarrez MD [Referring] - 4-7 days (FAXED REFFERAL) Kaitlynn Smith FNP [Nurse Practitioner] - 04/14/21 1:15 pm Discharge Diet: Cardiac Discharge Activity: Increase activity as tolerated Patient Instructions: Nifedipine (By mouth), Clonidine (By mouth), Hydralazine (By mouth), Carvedilol (By mouth), Opioid Safety Activity Restrictions/Additional Instructions: Please come to the ER if you start experiencing chest discomfort uncontrollable high blood pressure You have been given increased dose of hydralazine and nifedipine, please take clonidine only if despite these 2 medications of systolic blood pressures above 180 mmHg or diastolic greater than 100 mmHg You have been given follow-up appointments please maintain a blood pressure diary to show to your doctors he will need readjustment of your blood pressure medications for which I have also added follow-up appointment with Dr. Manjarrez Coreg has been decreased because of bradycardia. Discharge Attestations Time Spent in Discharge Care*: less than 30 min Quality Metrics Clinical Quality Measures [ No reported AMI, CVA or VTE this stay] Coding Level of Care Code Acute Chg FW DC note Diagnoses Chest pain R07.9 CKD (chronic kidney disease) stage 3, GFR 30-59 ml/min N18.30 Hypertension I10
[2021-04-07 12:22] VITALS: BP 105/74
== END 2021-04-07 12:23 | disposition home or self-care (01) | DRG 311 ==
LOC: ER 06:28 → MEDSURG 08:40
PROVIDERS: Admitting Provider Family Medicine; Emergency Provider Emergency Medicine; PCP Nurse Practitioner; Visit Provider Internal Medicine
DX: I20.8 Other forms of angina pectoris (principal); I16.0 Hypertensive urgency; N18.30 Chronic kidney disease, stage 3 unspecified; E11.22 Type 2 diabetes mellitus with diabetic chronic kidney disease; I12.9 Hypertensive chronic kidney disease with stage 1 through stage 4 chronic kidney disease, or unspecified chronic kidney disease; Z79.84 Long term (current) use of oral hypoglycemic drugs; M19.90 Unspecified osteoarthritis, unspecified site; R00.1 Bradycardia, unspecified; M1A.9XX0 Chronic gout, unspecified, without tophus (tophi); Z79.52 Long term (current) use of systemic steroids
CPT/HCPCS: 36415; 71045; 78452; 80048; 80053; 80061; 83036; 83721; 83735; 83880; 84443; 84484; 85025; 85378; 86140; 93005; 93017; 93306; 96374; 96375; 99285; A9500; J0360; J2270; J2405; J2785; J7512

== ENCOUNTER → 2022-06-25 11:52 | Outpatient (BNVA) | payer OTHER, SELFPAY | PROVIDERS: PCP Family Medicine; Visit Provider Family Medicine | DX: E11.9 Type 2 diabetes mellitus without complications (principal); R79.89 Other specified abnormal findings of blood chemistry | CPT/HCPCS: 80053; 80061; 83036; 83721 ==

== ENCOUNTER → 2022-06-29 15:59 | Outpatient (BNVA) | payer OTHER, SELFPAY | PROVIDERS: PCP Family Medicine; Visit Provider Internal Medicine Rheumatology | DX: M1A.9XX1 Chronic gout, unspecified, with tophus (tophi) (principal); Z79.899 Other long term (current) drug therapy | CPT/HCPCS: 84550 ==

== ENCOUNTER 2022-08-12 08:12 | Day surgery (SDC) | payer OTHER, SELFPAY ==
[2022-08-11 09:03] VITALS: BMI 33.0
[2022-08-12] MEDS: sodium chloride 0.9% 1,000 ML 30 ML IV (08:33)
[2022-08-12 08:34] LABS: Glucose Point of Care 148 mg/dL (70-110)
[2022-08-12 08:38] VITALS: BP 215/134; PULSE 61; RESP 18; TEMP 36.4; O2SAT 95
--- NOTE | 2022-08-12 08:44 | P.ANESASSM_ITS ---
Pre-Anesthetic Assessment Height/Weight: Height 1.78 m Weight 104.326 kg Temp Pulse Resp BP Pulse Ox O2 Del Method 97.6 F 61 18 215/134 95 Room Air 08/12/22 08:38 08/12/22 08:38 08/12/22 08:38 08/12/22 08:38 08/12/22 08:38 08/12/22 08:38 Preop Diagnosis: screening Operation Date: 08/12/22 09:30 Proposed Procedures p 71619 colon, Z12.11(Not Applicable) - Lei Santillan DO Familial anesthetic complications: none Was Beta Yaima taken within 24 hours: Yes Was Clonidine taken within 24 hours: N/A Last intake: Intake Last Liquid Date 08/11/22 Last Liquid Time 23:30 Last Solid Date 08/10/22 Last Solid Time 21:30 Last Intake: 23:30 Social No alcohol and No tobacco Exam alert, oriented x 3, clear to auscultation bilaterally and regular rate & rhythm Airway Submandibular: within normal limits Cervical ROM: within normal limits Mallampati: Class II Dentition: full Pulmonary None reported CV/HEM Hypertension Chronic Renal Insufficiency Hepatic None reported GI None reported Metabolic Diabetes Mellitus (avg 150) [facility] None reported Neuropsych None reported Anesthetic Plan ASA status: 3 Anesthesia: MAC Risk of > 500 ml blood loss (7ml/kg in children): No Medications/Allergies Home Medications Medication Instructions Recorded Confirmed Last Taken Type torsemide 10 mg tablet 10 mg PO DAILY 09/05/20 08/12/22 08/11/22 History carvedilol 6.25 mg tablet (Coreg) 6.25 mg PO BID #60 tabs 04/07/21 08/12/22 08/12/22 06:30 Rx clonidine HCl 0.1 mg tablet 0.1 mg PO Q8H PRN hypertensive 04/07/21 08/12/22 08/11/22 Rx emergency #30 tabs metformin 850 mg tablet 850 mg PO BID 06/13/21 08/12/22 08/11/22 History hydralazine 50 mg tablet 50 mg PO TID #90 tabs 06/25/22 08/12/22 08/11/22 Rx losartan 25 mg tablet 25 mg PO DAILY 06/25/22 08/12/22 08/11/22 History omeprazole 20 mg capsule,delayed 20 mg PO BID 06/25/22 08/12/22 08/11/22 History release prednisone 5 mg tablet 5 mg PO DAILY #90 tabs 06/29/22 08/12/22 08/11/22 Rx nifedipine 90 mg tablet,extended 90 mg PO DAILY #90 tabs 07/08/22 08/12/22 08/12/22 06:30 Rx release 24 hr febuxostat 80 mg tablet 80 mg PO DAILY #90 tabs 07/15/22 08/12/22 08/11/22 Rx empagliflozin 25 mg tablet 25 mg PO QAM 08/11/22 08/12/22 08/11/22 History prednisone 10 mg tablet See Rx Instructions .Route 08/11/22 08/12/22 08/11/22 History .COMPLEX PRN Pain Allergies Allergy/AdvReac Type Severity Reaction Status Date / Time allopurinol Allergy Unknown Verified 07/17/22 11:47 colchicine Allergy vomiting Verified 07/17/22 11:47 fenofibrate Allergy GI Verified 07/17/22 11:47 intolerance gemfibrozil Allergy unknown Verified 07/17/22 11:47 hydrochlorothiazide Allergy unknown Verified 07/17/22 11:47 indomethacin Allergy unknown Verified 07/17/22 11:47 lisinopril Allergy cough Verified 07/17/22 11:47 lovastatin Allergy unknown Verified 07/17/22 11:47 valsartan Allergy unknown Verified 07/17/22 11:47 Current Medications Generic Name Dose Route Start Last Admin Trade Name Freq PRN Reason Stop Dose Admin Sodium Chloride 1,000 mls @ 30 mls/hr 08/12/22 08:30 08/12/22 08:33 Sodium Chloride 0.9% IV 08/13/22 08:29 30 mls/hr .Q24H ROSA Administration PFSH Anesthesia Medical History Abnormal stress test Abnormal myocardial perfusion imaging with prior infarct and trinidad-infarct ischemia noted in the inferior and inferoseptal tobin. LV systolic function is normal CKD (chronic kidney disease) stage 3, GFR 30-59 ml/min Diabetes Gout, tophaceous High risk medication use Hypercholesteremia Hypertension Immunization counseling Inflammatory arthritis Unstable angina Surgical History No history of previous surgery Family History Other CAD (coronary artery disease) Cancer Diabetes Gout Hypertension Denies family history of Rheumatoid arthritis Lupus Hyperlipidemia Chronic kidney disease (CKD) Lung disease Stroke Social History Smoking and tobacco status: never smoked Alcohol intake: never Substance/Drug Use: never Household members: spouse Marital status: Number of children: 3 Number of grandchildren: 3 service: No Current occupational status: retired 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
[2022-08-12] MEDS: hyDRALAzine 20 mg/mL INJ 1 mL 10 MG IVP (08:45)
--- NOTE | 2022-08-12 10:37 | PM.HP ---
Providers/Chief Complaint Primary Care Provider: Norma Freeman MD Chief Complaint: Z12.11 History of Present Illness Emery Davenport is a 56 year old male here for a screening colonoscopy Medications/Allergies Home Medications Medication Instructions Recorded Confirmed Last Taken Type torsemide 10 mg tablet 10 mg PO DAILY 09/05/20 08/12/22 08/11/22 History carvedilol 6.25 mg tablet (Coreg) 6.25 mg PO BID #60 tabs 04/07/21 08/12/22 08/12/22 06:30 Rx clonidine HCl 0.1 mg tablet 0.1 mg PO Q8H PRN hypertensive 04/07/21 08/12/22 08/11/22 Rx emergency #30 tabs metformin 850 mg tablet 850 mg PO BID 06/13/21 08/12/22 08/11/22 History hydralazine 50 mg tablet 50 mg PO TID #90 tabs 06/25/22 08/12/22 08/11/22 Rx losartan 25 mg tablet 25 mg PO DAILY 06/25/22 08/12/22 08/11/22 History omeprazole 20 mg capsule,delayed 20 mg PO BID 06/25/22 08/12/22 08/11/22 History release prednisone 5 mg tablet 5 mg PO DAILY #90 tabs 06/29/22 08/12/22 08/11/22 Rx nifedipine 90 mg tablet,extended 90 mg PO DAILY #90 tabs 07/08/22 08/12/22 08/12/22 06:30 Rx release 24 hr febuxostat 80 mg tablet 80 mg PO DAILY #90 tabs 07/15/22 08/12/22 08/11/22 Rx empagliflozin 25 mg tablet 25 mg PO QAM 08/11/22 08/12/22 08/11/22 History prednisone 10 mg tablet See Rx Instructions .Route 08/11/22 08/12/22 08/11/22 History .COMPLEX PRN Pain Allergies Allergy/AdvReac Type Severity Reaction Status Date / Time allopurinol Allergy Unknown Verified 07/17/22 11:47 colchicine Allergy vomiting Verified 07/17/22 11:47 fenofibrate Allergy GI Verified 07/17/22 11:47 intolerance gemfibrozil Allergy unknown Verified 07/17/22 11:47 hydrochlorothiazide Allergy unknown Verified 07/17/22 11:47 indomethacin Allergy unknown Verified 07/17/22 11:47 lisinopril Allergy cough Verified 07/17/22 11:47 lovastatin Allergy unknown Verified 07/17/22 11:47 valsartan Allergy unknown Verified 07/17/22 11:47 PFSH Acute PFSH: Medical History Abnormal stress test Abnormal myocardial perfusion imaging with prior infarct and tirnidad-infarct ischemia noted in the inferior and inferoseptal tobin. LV systolic function is normal CKD (chronic kidney disease) stage 3, GFR 30-59 ml/min Diabetes Gout, tophaceous High risk medication use Hypercholesteremia Hypertension Immunization counseling Inflammatory arthritis Unstable angina Surgical History No history of previous surgery Family History Other CAD (coronary artery disease) Cancer Diabetes Gout Hypertension Denies family history of Rheumatoid arthritis Lupus Hyperlipidemia Chronic kidney disease (CKD) Lung disease Stroke Social History Smoking and tobacco status: never smoked Alcohol intake: never Substance/Drug Use: never Household members: spouse Marital status: Number of children: 3 Number of grandchildren: 3 service: No Current occupational status: retired 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 The patient is understanding of the risks and wishes to proceed. Attestations Medical Necessity Statement*: Home Coding Level of Care Code Acute Code for Chg Fwd Diagnoses Colon cancer screening Z12.11
[2022-08-12 11:35] VITALS: BP 121/78; PULSE 70; RESP 16; TEMP 36.3; O2SAT 95
[2022-08-12 11:45] VITALS: BP 124/77; PULSE 65; RESP 16; O2SAT 96
[2022-08-12 12:00] VITALS: BP 135/97; PULSE 70; RESP 16; O2SAT 96
--- NOTE | 2022-08-12 13:59 | ANE.PACU2 ---
Inpatient post-anesthesia follow up: Airway intact: Yes Vital signs: Temperature 97.4 F Pulse Rate 70 Respiratory Rate 16 Blood Pressure 135/97 Pulse Oximetry 96 Oxygen Delivery Me thod Room Air Oxygen Flow Rate 2 Fraction of Inspir ed Oxygen Hydration adequate: Yes Nausea and vomiting: No Pain level: 2 Mental status: Baseline
== END 2022-08-12 12:15 | disposition home or self-care (01) ==
PROVIDERS: PCP Family Medicine; Visit Provider Surgery
PROC: 0DJD8ZZ Inspection of Lower Intestinal Tract, Via Natural or Artificial Opening Endoscopic (ICD-10-PCS; CPT 45378; principal; 2022-08-12 09:30)
DX: Z12.11 Encounter for screening for malignant neoplasm of colon (principal); D12.2 Benign neoplasm of ascending colon; D12.3 Benign neoplasm of transverse colon; D12.5 Benign neoplasm of sigmoid colon; I12.9 Hypertensive chronic kidney disease with stage 1 through stage 4 chronic kidney disease, or unspecified chronic kidney disease; N18.30 Chronic kidney disease, stage 3 unspecified; E11.22 Type 2 diabetes mellitus with diabetic chronic kidney disease; E78.00 Pure hypercholesterolemia, unspecified; Z79.84 Long term (current) use of oral hypoglycemic drugs; Z80.0 Family history of malignant neoplasm of digestive organs
CPT/HCPCS: 36416; 45385; 82962; 88305; 96374; J0360; J2704; J7030

== ENCOUNTER → 2022-10-02 13:05 | Outpatient (BNVA) | payer OTHER, SELFPAY | PROVIDERS: PCP Family Medicine; Visit Provider Family Medicine | DX: I10 Essential (primary) hypertension (principal); N18.30 Chronic kidney disease, stage 3 unspecified; E11.9 Type 2 diabetes mellitus without complications; E78.00 Pure hypercholesterolemia, unspecified | CPT/HCPCS: 80053; 80061; 82248; 83036; 84550; 85025; 86140 ==

== ENCOUNTER → 2023-05-25 09:52 | Outpatient (BNVA) | payer OTHER, SELFPAY | PROVIDERS: PCP Family Medicine; Visit Provider Family Medicine | DX: M19.90 Unspecified osteoarthritis, unspecified site (principal); N18.30 Chronic kidney disease, stage 3 unspecified; Z79.899 Other long term (current) drug therapy | CPT/HCPCS: 80076; 82565; 85025; 86140 ==

== ENCOUNTER 2023-12-09 20:43 | Inpatient (IN) | payer SELFPAY ==
[2023-12-09] VITALS (19 sets, daily range): BP systolic 95–107; BP diastolic 64–84; PULSE 88–107; RESP 18–35; TEMP 36.7–36.8; O2SAT 85–91; BMI 30.8; BMI 31.9
--- NOTE | 2023-12-09 21:04 | XRR_ITS ---
PROCEDURE INFORMATION: Exam: XR Chest Exam date and time: 12/09/2023 9:57 PM Age: 58 years old Clinical indication: Shortness of breath TECHNIQUE: Imaging protocol: Radiologic exam of the chest. Views: 1 view. COMPARISON: CR XR chest 1V portable [id number] 04/05/2021 3:26 AM FINDINGS: Lungs: Heterogeneous opacities are noted at each lung base. No pulmonary venous distension. Pleural spaces: No pleural effusion. No pneumothorax. Heart/Mediastinum: Stable moderate cardiomegaly. Bones/joints: Age appropriate. XR/XR chest 1V portable [id number] IMPRESSION: Heterogeneous opacities at each lung base could reflect pneumonia, atelectasis, or changes of aspiration.
--- NOTE | 2023-12-09 21:08 | ECG_ITS ---
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[employer]: : 1965 Requested By: Wendy Catherine Order Number: [id number] Deepti MD: MARY RICHARDSON Measurements Intervals [place] Rate: 96 P: 58 [place]: 181 QRS: 111 QRSD: 167 T: 72 QT: 383 QTc: 486 Interpretive Statements SINUS RHYTHM RIGHT BUNDLE BRANCH BLOCK [120+ ms QRS DURATION, UPRIGHT V1, 40+ ms S IN I/aVL/V4/V5/V6] ANTEROLATERAL MYOCARDIAL INFARCTION , PROBABLY RECENT [40+ ms Q WAVE IN I/aVL/V3-V6] ACUTE ND Compared to ECG 04/05/2021 10:37:42 Right bundle-branch block now present Sinus bradycardia no longer present Myocardial infarct finding still present Electronically Signed On 12-11-2023 18:11:44 CDT by MARY RICHARDSON [email or web address]
--- NOTE | 2023-12-09 21:09 | ECG_ITS ---
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1965 Requested By: Wendy Catherine Order Number: [id number] Deepti MD: MARY RICHARDSON Measurements Intervals [place] Rate: 96 P: 57 [place]: 178 QRS: 111 QRSD: 169 T: 75 QT: 379 QTc: 479 Interpretive Statements SINUS RHYTHM RIGHT BUNDLE BRANCH BLOCK [120+ ms QRS DURATION, UPRIGHT V1, 40+ ms S IN I/aVL/V4/V5/V6] ANTEROLATERAL MYOCARDIAL INFARCTION , OF INDETERMINATE AGE [40+ ms Q WAVE IN I/aVL/V3-V6] Compared to ECG 04/05/2021 10:37:42 Right bundle-branch block now present Sinus bradycardia no longer present Myocardial infarct finding still present Electronically Signed On 12-11-2023 18:11:40 CDT by MAYR RICHARDSON [email or web address]
[2023-12-09 21:25] LABS: ABG PCO2 35.1 mmHg (35-45); ABG PH Result 7.39 (7.35-7.45); Alveolar-Arterial Oxygen Gradi 6.4 mmHg (5-10); Arterial Blood Gas Hematocrit 43.2 % (42-52); Blood Gas Allen Test Pos; Blood Gas Operator Identificat JB; Blood Gas Sample Site Radial, right; Blood Gas Sample Type Arterial; Carboxyhemoglobin 1.3 %THgb (0.4-20.1); HCO3 ABG 21.3 mmol/L (22-26); Ionized Calcium Level - ABG 1.2 mmol/L (1.1-1.4); Methemoglobin 1.2 % (0.4-1.5); Oxygen Device NC; Oxygen Saturation ABG 90.2; PO2 ABG 58.3 mmHg (80.0-100.0); Potassium Level - ABG 4.9 mmol/L (3.5-5.0); Total Hemoglobin 14.1 g/dL (14-18)
[2023-12-09 21:34] LABS: Basophils % 0.1 %; Hematocrit 42.7 % (37-53); Lymphocytes # 0.7 10^3/uL (0.8-4.8); Lymphocytes % 3.5 %; Mean Corpuscular HGB Conc 32.8 g/dL (30-55); Mean Corpuscular Hemoglobin 30.2 pg (27-33); Monocytes # 1.4 10^3/uL (0.2-0.9); Monocytes % 6.9 %; Neutrophils # 18.46 10^3/uL (1.8-7.7); Neutrophils % 88.7 %; Nucleated Red Blood Cells % 0 %; Platelet Count 318 10^3/cmm (157-399); Red Blood Count 4.64 10^6/uL (3.85-5.65); Red Cell Distribution Width 12.6 % (12.1-15.1); White Blood Count 20.81 10^3/uL (3.29-11.43)
--- NOTE | 2023-12-09 21:42 | W.ED.CHESTPA ---
HPI - Chest Pain General: Chief Complaint: Chest Pain Stated Complaint: sob Time Seen by Provider: 12/09/23 21:03 History of Present Illness: 58-year-old male with history of hypertension who presents to the emergency room with chest tightness and shortness of breath for the last 2 days. He says he has not really had any chest pain. He says he sometimes has some mild swelling on his legs but on exam here he does not have very noticeable edema. He has had some nausea at times. He is had very severe exertional dyspnea barely made it from the car into the emergency room without having to rest he says. On presentation he was hypoxemic in the mid 80s on room air. Requiring 4 L at this time. He has had some cough he says. No altered mental status. No focal motor deficits. No abdominal pain. Related Data Previous Rx's Medication Instructions Recorded clonidine HCl 0.1 mg tablet 0.1 mg PO Q8H PRN hypertensive 04/07/21 emergency #30 tabs febuxostat 80 mg tablet 80 mg PO DAILY #90 tabs 03/24/23 empagliflozin 25 mg tablet See Rx Instructions .Route 05/14/23 (Jardiance) .COMPLEX #90 tabs prednisone 10 mg tablet See Rx Instructions .Route 05/19/23 .COMPLEX PRN Pain #30 tabs prednisone 2.5 mg tablet 2.5 mg PO DAILY #90 tabs 05/19/23 losartan 100 mg tablet See Rx Instructions .Route 09/04/23 .COMPLEX #90 tabs omeprazole 20 mg capsule,delayed See Rx Instructions .Route 09/04/23 release .COMPLEX #180 caps torsemide 10 mg tablet See Rx Instructions .Route 09/04/23 .COMPLEX #90 tabs metformin 850 mg tablet See Rx Instructions .Route 09/28/23 .COMPLEX #180 tabs carvedilol 6.25 mg tablet See Rx Instructions .Route 11/09/23 .COMPLEX #180 tabs hydralazine 50 mg tablet See Rx Instructions .Route 11/09/23 .COMPLEX #90 tabs nifedipine 90 mg tablet,extended See Rx Instructions .Route 11/22/23 release 24 hr .COMPLEX #90 tabs Allergies Allergy/AdvReac Type Severity Reaction Status Date / Time allopurinol Allergy Unknown Verified 12/14/22 10:28 colchicine Allergy vomiting Verified 12/14/22 10:28 fenofibrate Allergy GI Verified 12/14/22 10:28 intolerance gemfibrozil Allergy unknown Verified 12/14/22 10:28 hydrochlorothiazide Allergy unknown Verified 12/14/22 10:28 indomethacin Allergy unknown Verified 12/14/22 10:28 lisinopril Allergy cough Verified 12/14/22 10:28 lovastatin Allergy unknown Verified 12/14/22 10:28 valsartan Allergy unknown Verified 12/14/22 10:28 Review of Systems Narrative: Constitutional symptoms: Negative except as documented in HPI. Skin symptoms: Negative except as documented in HPI. Eye symptoms: Negative except as documented in HPI. ENMT symptoms: Negative except as documented in HPI. Respiratory symptoms: Negative except as documented in HPI. Cardiovascular symptoms: Negative except as documented in HPI. Gastrointestinal symptoms: Negative except as documented in HPI. Genitourinary symptoms: Negative except as documented in HPI. Musculoskeletal symptoms: Negative except as documented in HPI. Neurologic symptoms: Negative except as documented in HPI. Psychiatric symptoms: Negative except as documented in HPI. Endocrine symptoms: Negative except as documented in HPI. PFSH ED PFSH: Medical History Abnormal stress test Abnormal myocardial perfusion imaging with prior infarct and [place]-infarct ischemia noted in the inferior and inferoseptal tobin. LV systolic function is normal CKD (chronic kidney disease) stage 3, GFR 30-59 ml/min Diabetes Gout, tophaceous High risk medication use Hypercholesteremia Hypertension Immunization counseling Inflammatory arthritis Unstable angina Surgical History No history of previous surgery Family History Other CAD (coronary artery disease) Cancer Diabetes Gout Hypertension Denies family history of Rheumatoid arthritis Lupus Hyperlipidemia Chronic kidney disease (CKD) Lung disease Stroke Social History Smoking and tobacco/nicotine status: never used tobacco/nicotine Alcohol intake: never Substance/Drug Use: never Household members: spouse Marital status: Number of children: 3 Number of grandchildren: 3 service: No Current occupational status: retired 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 Skin: Warm, dry. Head: Normocephalic, atraumatic. Neck: Supple, trachea midline. Eye: Extraocular movements are intact. Ears, nose, mouth and throat: mucosa moist. Cardiovascular: Regular, Normal peripheral perfusion. Respiratory: Patient is slightly tachypneic, breath sounds are coarse, diminished on the left Gastrointestinal: Soft, Nontender, Non distended Musculoskeletal: Normal ROM, no deformity. Neurological: Alert and oriented, No focal neurological deficit observed. Psychiatric: Cooperative, appropriate mood & affect. Course Vital Signs: Vital signs: Vital Signs Temperature 98.0 F 12/09/23 20:49 Pulse Rate 107 H 12/09/23 23:05 Respiratory Rate 35 H 12/09/23 23:00 Blood Pressure 97/74 12/09/23 23:05 Pulse Oximetry 89 L 12/09/23 23:05 Oxygen Delivery Me thod Room Air 12/09/23 20:49 Oxygen Flow Rate 6 12/09/23 22:01 MDM - Chest Pain Medical Decision Making Differential diagnosis for patient with shortness of breath includes but is not limited to and based on the above HPI, review of systems and physical exam: Pneumonia. Bronchitis. Asthma or COPD with acute exacerbation. Acute coronary syndrome / SD. Pulmonary embolism. Anxiety. Congestive heart failure. Viral infections including influenza and Covid-19. Atrial fibrillation. Anxiety. Pleural effusion. Pneumothorax. Orders placed to evaluate differential diagnosis based on the above differential, HPI and physical exam EKG: Normal sinus rhythm, right bundle branch block, ST changes. Most notably in the anterior lateral leads., no ectopy, normal MA & QRS intervals, This was reviewed and interpreted by myself the ER physician at 2110. I also sent this to the dinkey brakeman to review. He did not feel this was a STEMI. Consultation: I spoke with Dr. Swenson after initial EKG. Advises usual shortness of breath/chest pain workup. Lab Review: Laboratory results were reviewed and interpreted by myself the emergency room physician. Lab work remarkable for leukocytosis with a white count of 20,000. Patient is not anemic. Hemoglobin 14. BUN and creatinine are elevated at 59 and 3.4. His baseline is around 2. Potassium is mildly elevated at 5.3. Troponin is very elevated at 8000. proBNP is also very elevated at 20,000. Patient appears to have had a non-STEMI and is now in congestive heart failure. Blood pressure is low at concern for cardiac shock Chest x-ray: Cardiomegaly, pulmonary edema. Films were interpreted by myself the emergency room provider and pending final radiology review. Consultation: I spoke again with Dr. Swenson after I got back proBNP and troponin. He is coming to see the patient. Recommends emergent echocardiogram. I reviewed the patient's medical record. Reexamination: Patient remains mildly hypotensive. He does not appear in acute distress. Not having to work to breathe with oxygen. Lung sounds are still coarse. Consultation: I spoke with Dr. Walsh who is on-call for the hospitalist service who is admitting the patient. Assessment and plan: Non-ST elevation myocardial infarction Acute congestive heart failure Cardiogenic shock Hypoxemic respiratory failure Acute on chronic renal failure ?324 aspirin and 4000 units of heparin given. ?IV Levophed being started per cardiology recommendations also 40 of IV Lasix being given. -I discussed the patient with the hospitalist on-call who is admitting the patient. - Discussed findings and plan with patient. Answered any questions. - All laboratory values were reviewed and interpreted personally by myself, the ER physician - All imaging was reviewed and interpreted personally by myself, the ER physician. - Evaluation and treatment of this problem were appropriate in the emergency setting Lab Data 12/09/23 21:22 12/09/23: Laboratory Results WBC 20.81 10^3/uL (3.29-11.43) H 12/09/23: RBC 4.64 10^6/uL (3.85-5.65) 12/09/23 21: Hgb 14.00 g/dL (11.27-16.99) 12/09/23 21: Hct 42.7 % (37-53) 12/09/23 21: MCV 92.0 fl (82-101) 12/09/23 21: MCH 30.2 pg (27-33) 12/09/23 21: MCHC 32.8 g/dL (30-55) 12/09/23 21: RDW 12.6 % (12.1-15.1) 12/09/23 21: Plt Count 318 10^3/cmm (157-399) 12/09/23 21: MPV 10.0 fL (7.4-10.4) 12/09/23 21: Neut % (Auto) 88.7 % 12/09/23 21: Lymph % (Auto) 3.5 % 12/09/23 21:22 [place] % (Auto) 6.9 % 12/09/23 21:22 Eos % (Auto) 0.0 % 12/09/23 21:22 Baso % (Auto) 0.1 % 12/09/23 21:22 Neut # (Auto) 18.46 10^3/uL (1.8-7.7) H 12/09/23 21:22 Lymph # (Auto) 0.7 10^3/uL (0.8-4.8) L 12/09/23 21:22 [place] # (Auto) 1.4 10^3/uL (0.2-0.9) H 12/09/23 21:22 Eos # (Auto) 0.0 10^3/uL (0.0-0.8) 12/09/23 21:22 Baso # (Auto) 0.0 10^3/uL (0.0-0.1) 12/09/23 21:22 Nucleated RBC % (auto) 0 % 12/09/23 21: Nucleated RBCs # 0.0 /100WBC 12/09/23 21:22 PT 13.20 SECONDS (12.1-14.9) 12/09/23 21:22 INR 0.97 (0.8-1.2) 12/09/23 21: APTT 24.6 SECONDS (23.9-36.7) 12/09/23 21:22 D-Dimer 0.80 ug/mLFEU (0-0.59) H 12/09/23 21:22 Specimen Type Arterial 12/09/23 21:13 Sample Site Radial, right 12/09/23 21:13 ABG pH 7.39 (7.35-7.45) 12/09/23 21:13 ABG pCO2 35.1 mmHg (35-45) 12/09/23 21:13 ABG pO2 58.3 mmHg (80.0-100.0) L 12/09/23 21:13 ABG HCO3 21.3 mmol/L (22-26) L 12/09/23 21:13 ABG O2 Saturation 90.2 12/09/23 21:13 ABG Base Excess -3.0 mmol/L (-2.0-2.0) L 12/09/23 21:13 Mohit Test Pos 12/09/23 21:13 A-a O2 Gradient 6.4 mmHg (5-10) 12/09/23 21:13 Hematocrit 43.2 % (42-52) 12/09/23 21:13 Hgb O2 Saturation 88.0 % (95-100) L 12/09/23 21:13 Carboxyhemoglobin 1.3 %THgb (0.4-20.1) 12/09/23 21:13 Methemoglobin 1.2 % (0.4-1.5) 12/09/23 21:13 Total Hemoglobin 14.1 g/dL (14-18) 12/09/23 21:13 Sodium 134.0 mmol/L (131-143) 12/09/23 21:13 Potassium 4.9 mmol/L (3.5-5.0) 12/09/23 21:13 Glucose 253.0 mg/dL (70-115) H 12/09/23 21:13 Ionized Calcium 1.2 mmol/L (1.1-1.4) 12/09/23 21:13 O2 Delivery Device Nc 12/09/23 21:13 O2 Liters/Min 5.0 % 12/09/23 21:13 Supervisor Product Inspection ID David 12/09/23 21:13 Sodium 132 mmol/L (136-145) L 12/09/23 21:22 Potassium 5.3 mmol/L (3.5-5.1) H 12/09/23 21:22 Chloride 93 mmol/L (98-107) L 12/09/23 21:22 Carbon Dioxide 22 mmol/L (22-29) 12/09/23 21:22 Anion Gap 22.3 (5-19) H 12/09/23 21:22 BUN 59 mg/dL (6-20) H 12/09/23 21:22 Creatinine 3.4 mg/dL (0.7-1.2) H 12/09/23 21:22 GFR Calculation 18.7 mL/min (90-130) L 12/09/23 21:22 Glucose 260 mg/dL (65-115) H 12/09/23 21:22 Calculated Osmolality 300 mOsm/kg (285-295) H 12/09/23 21:22 Lactic Acid 3.1 mmol/L (0.5-2.2) H 12/09/23 21:22 Calcium 9.1 mg/dL (8.5-10.5) 12/09/23 21:22 Total Bilirubin 0.6 mg/dL (0.15-1.2) 12/09/23 21:22 AST 340 U/L (0-40) H 12/09/23 21:22 ALT 103 U/L (0-41) H 12/09/23 21:22 Alkaline Phosphatase 103 U/L (40-130) 12/09/23 21:22 Troponin T Baseline 8450 ng/L (0-15) H* 12/09/23 21:22 C-Reactive Protein 99.0 mg/L (0.0-4.9) H 12/09/23 21:22 NT-Pro-B Natriuret Pep 47907 pg/mL (0-125) H 12/09/23 21:22 Total Protein 6.7 g/dL (6.6-8.7) 12/09/23 21:22 Albumin 4.1 g/dL (3.5-5.2) 12/09/23 21:22 Globulin 2.6 g/dL (1.3-4.6) 12/09/23 21:22 Coronavirus (PCR) Negative (Negative) 12/09/23 21:35 Influenza A (PCR) Negative (Negative) 12/09/23 21:35 Influenza Type B (PCR) Negative (Negative) 12/09/23 21:35 RSV (PCR) Negative (Negative) 12/09/23 21:35 XR interpretation done by ED provider, pending radiology final review Discharge Plan Discharge Patient Disposition: Admitted As Inpatient Admit Provider: Aleah Walsh Clinical Impression: Non-ST elevated myocardial infarction, Acute hypoxemic respiratory failure, Acute on chronic renal failure, Congestive heart failure Condition: Stable Coding Level of Care Code ED Sourcing Consultant for Geovany Aceves
[2023-12-09 21:43] LABS: Lactic Sepsis W/Reflex 3.1 mmol/L (0.5-2.2)
[2023-12-09 21:52] LABS: Troponin(5th) Baseline 8450 ng/L (0-15)
[2023-12-09 21:54] LABS: Alanine Aminotransferase 103 U/L (0-41); Albumin Level 4.1 g/dL (3.5-5.2); Alkaline Phosphatase 103 U/L (40-130); Aspartate Amino Transferase 340 U/L (0-40); Blood Urea Nitrogen 59 mg/dL (6-20); Calcium 9.1 mg/dL (8.5-10.5); Carbon Dioxide 22 mmol/L (22-29); Chloride 93 mmol/L (98-107); Creatinine Clr Calc Pharmacy 27.7382; Globulin 2.6 g/dL (1.3-4.6); Glomerular Filtration Rate 18.7 mL/min (90-130); Glucose 260 mg/dL (65-115); NT Pro B Type Natriuretic Pept 21762 pg/mL (0-125); Osmolality Calculated 300 mOsm/kg (285-295); Sodium 132 mmol/L (136-145); Total Bilirubin 0.6 mg/dL (0.15-1.2); Total Protein 6.7 g/dL (6.6-8.7)
[2023-12-09 22:03] LABS: Anion Gap 22.3 (5-19); Potassium 5.3 mmol/L (3.5-5.1)
--- NOTE | 2023-12-09 22:24 | USCV_ITS ---
Emery Davenport Age: 58 Gender: M : 1965 Exam Date: 12/09/2023 22:39 Ordering Phys: Wendy Mckee MD Technologist: SAURAV Exam Location: [facility] [place] Indication: nstemi. BP: 96 / 69 HR: 92 Rhythm: Sinus Technical Quality: Adequate MEASUREMENTS (Male / Female) Normal Values 2D ECHO LV Diastolic Diameter PLAX 4.4 cm 4.2 - 5.9 / 3.9 - 5.3 cm IVS Diastolic Thickness 1.4 cm 0.6 - 1.0 / 0.6 - 0.9 cm IVS Systolic Thickness 1.6 cm LVPW Diastolic Thickness 1.4 cm 0.6 - 1.0 / 0.6 - 0.9 cm LVPW Systolic Thickness 1.7 cm LVOT Diameter 1.9 cm LV Ejection Fraction 2D Teich 39.7 % LV Ejection Fraction MOD 4C 20.1 % LV Ejection Fraction MOD 2C 40.4 % LV Ejection Fraction 2C AL 39.7 % LA Diameter 4.6 cm Aorta at Sinotubular Diameter 2.7 cm IVC Diameter 1.9 cm M-MODE LA Ao Ratio MM 1.7 AV Cusp Separation MM 1.9 cm DOPPLER AV Peak Velocity 96.0 cm/s LVOT Peak Velocity 60.0 cm/s AV Area Cont Eq vti 2.1 cm squared AV Area Cont Eq pk 1.8 cm squared MV Peak Velocity 74.0 cm/s MV Area PHT 4.7 cm squared Mitral E to A Ratio 1.9 TV Peak Velocity 189.5 cm/s TR Peak Velocity 210.0 cm/s TR Peak Gradient 17.6 mmHg TV Peak E Velocity 50.0 cm/s Right Atrial Pressure 3.0 mmHg Pulmonary Artery Systolic Pressu 20.6 mmHg PV Peak Velocity 80.0 cm/s FINDINGS Left Ventricle Moderately increased left ventricular cavity size. Mild left ventricular hypertrophy. Severely decreased left ventricular systolic function. Left ventricular ejection fraction is estimated at 30 %. There appeared to be the lateral wall akinesis, apical anterior and septal wall severe hypokinesis, apical and lateral wall akinesis,Grade II/IV diastolic dysfunction, moderately elevated filling pressures. Wall motion abnormalities consistent with ischemic heart disease Right Ventricle The right ventricle is normal in size and function. Right Atrium The right atrium is normal in size. Left Atrium Moderately increased left atrial size. Mitral Valve Thickened mitral valve. No mitral valve stenosis. Moderate mitral valve regurgitation. Aortic Valve Mild aortic valve calcification. No aortic valve stenosis. Trace aortic valve regurgitation. Tricuspid Valve Trace tricuspid valve regurgitation. Pulmonic Valve Mild pulmonary valve regurgitation. Pericardium Normal pericardium without effusion. Aorta Normal ascending aorta dimension. IVC Dilated IVC. Dilated IVC with decreased respiratory variation. CONCLUSIONS Moderately increased left ventricular cavity size. Mild left ventricular hypertrophy. Severely decreased left ventricular systolic function. Left ventricular ejection fraction is estimated at 30 %. There appeared to be the lateral wall akinesis, apical anterior and septal wall severe hypokinesis, apical and lateral wall akinesis,Grade II/IV diastolic dysfunction, moderately elevated filling pressures. These wall motion abnormalities consistent with ischemic heart disease Moderately increased left atrial size. Thickened mitral valve. No mitral valve stenosis. Moderate mitral valve regurgitation. There is no pericardial effusion. Right atrial pressure is around 20 mm of mercury. Tiffany Hartley MD (Electronically Signed) Final Date: 10 December 2023 00:19 S
[2023-12-09] MEDS: heparin 5,000 unit/mL INJ 1 mL 4000 UNIT IVP (22:30)
[2023-12-09 22:33] LABS: Covid PCR NEGATIVE (Negative); Influenza A NEGATIVE (Negative); Influenza B NEGATIVE (Negative); Respiratory Syncytial Virus Ce NEGATIVE (Negative)
[2023-12-09] MEDS: aspirin 81 mg Chew Tablet 324 MG PO (22:34)
[2023-12-09 22:55] LABS: INR 0.97 (0.8-1.2); Partial Thromboplastin Time 24.6 SECONDS (23.9-36.7)
--- NOTE | 2023-12-09 23:04 | ECG_ITS ---
[facility]: 2023-12-09 Pat Name: Emery Davenport Department: Room: ICU05 Gender: Male Traffic Attendant: : 1965 Requested By: Wendy Catherine Order Number: [id number] Deepti MD: MARY RICHARDSON Measurements Intervals [place] Rate: 90 P: 58 MN: 187 QRS: 107 QRSD: 166 T: 74 QT: 385 QTc: 472 Interpretive Statements SINUS RHYTHM POSSIBLE LEFT ATRIAL ENLARGEMENT [-0.1mV P-WAVE IN V1/V2] INTRAVENTRICULAR CONDUCTION DELAY [130+ ms QRS DURATION] ANTEROLATERAL MYOCARDIAL INFARCTION , OF INDETERMINATE AGE [40+ ms Q WAVE IN I/aVL/V3-V6] Compared to ECG 12/09/2023 21:09:39 Intraventricular conduction delay now present Right bundle-branch block no longer present Myocardial infarct finding still present Electronically Signed On 12-11-2023 18:20:22 CDT by MARY RICHARDSON [email or web address]
[2023-12-09 23:16] LABS: Reflex Lactate Order REFLEX LACTIC ORDERD
--- NOTE | 2023-12-09 23:31 | P.CONIM_ITS ---
Providers/Reason For Consult 2 Consulting Physician/Specialty*: Dr. Mckee Reason for Consult*: [id number] PA Shortness of breath History of chronic kidney disease now acute on chronic renal failure Requesting Physician: Dr. Mckee Attending Physician: Aleah Walsh MD Primary Care Provider: Norma Freeman MD History of Present Illness History of Present Illness Emery Davenport is a 58 year old male brought in by his with worsening of shortness of breath orthopnea and PND going on for the last 2 days. According to the patient 3 days ago he had severe chest pain radiating to neck and jaw 9 out of 10, he did not specifically tell his about it, he tried to rest that day, he felt very fatigued and did not do much next day however felt sore all over his chest. Since that episode he started noticing worsening of shortness of breath to the extent that he cannot walk 200 feet. Since this morning he complained of PND and orthopnea. He uses CPAP, despite of its use he was not able to lay flat in the bed therefore decided to come to the ER. From the ER parking lot to main door patient had to sit down to catch his breath. Twelve- lead EKG was suggestive of incomplete right bundle branch block and sinus tachycardia. High-sensitivity troponin came back 8000, he appeared to be in no acute on chronic renal failure with baseline creatinine 1.8 now increased to 3.5. I saw patient in the ER and requested bedside echocardiogram which was suggestive of severely depressed left ventricular ejection fraction 25 to 30% with lateral and apical wall akinesis. Anterior wall was severely hypokinesis. Left ventricle appeared to be moderately dilated, there appeared to be mild to moderate mitral valve regurgitation, IVC is dilated more than 2 cm which does not collapses during inspiration suggestive of high right-sided atrial pressure. Since patient is not in chest pain and because of the fact he may have completed infarct which was 72 hours ago while he is in decompensated systolic heart failure with pulmonary edema, we decided to admit patient to ICU for aggressive medical management including heparin IV diuresis with pressor to support blood pressure since systolic blood pressure fluctuates between 90-103. My plan is once euvolemic and improve by renal function I will take him to the [facility], early invasive strategy can be adopted if patient becomes unstable with arrhythmia dynamic EKG changes with worsening of chest pain. Past medical history is significant for history of chronic kidney disease, sleep apnea, hypertriglyceridemia and hypertension. Medications/Allergies Home Medications Medication Instructions Recorded Confirmed Last Taken Type clonidine HCl 0.1 mg tablet 0.1 mg PO Q8H PRN hypertensive 04/07/21 12/14/22 08/11/22 Rx emergency #30 tabs febuxostat 80 mg tablet 80 mg PO DAILY #90 tabs 03/24/23 Unknown Rx empagliflozin 25 mg tablet See Rx Instructions .Route 05/14/23 Unknown Rx (Jardiance) .COMPLEX #90 tabs prednisone 10 mg tablet See Rx Instructions .Route 05/19/23 Unknown Rx .COMPLEX PRN Pain #30 tabs prednisone 2.5 mg tablet 2.5 mg PO DAILY #90 tabs 05/19/23 Unknown Rx losartan 100 mg tablet See Rx Instructions .Route 09/04/23 Unknown Rx .COMPLEX #90 tabs omeprazole 20 mg capsule,delayed See Rx Instructions .Route 09/04/23 Unknown Rx release .COMPLEX #180 caps torsemide 10 mg tablet See Rx Instructions .Route 09/04/23 Unknown Rx .COMPLEX #90 tabs metformin 850 mg tablet See Rx Instructions .Route 09/28/23 Unknown Rx .COMPLEX #180 tabs carvedilol 6.25 mg tablet See Rx Instructions .Route 11/09/23 Unknown Rx .COMPLEX #180 tabs hydralazine 50 mg tablet See Rx Instructions .Route 11/09/23 Unknown Rx .COMPLEX #90 tabs nifedipine 90 mg tablet,extended See Rx Instructions .Route 11/22/23 Unknown Rx release 24 hr .COMPLEX #90 tabs Allergies Allergy/AdvReac Type Severity Reaction Status Date / Time allopurinol Allergy Unknown Verified 12/14/22 10:28 colchicine Allergy vomiting Verified 12/14/22 10:28 fenofibrate Allergy GI Verified 12/14/22 10:28 intolerance gemfibrozil Allergy unknown Verified 12/14/22 10:28 hydrochlorothiazide Allergy unknown Verified 12/14/22 10:28 indomethacin Allergy unknown Verified 12/14/22 10:28 lisinopril Allergy cough Verified 12/14/22 10:28 lovastatin Allergy unknown Verified 12/14/22 10:28 valsartan Allergy unknown Verified 12/14/22 10:28 PFSH Acute 2 PFSH: Medical History Abnormal stress test Abnormal myocardial perfusion imaging with prior infarct and [place]-infarct ischemia noted in the inferior and inferoseptal [place]. LV systolic function is normal CKD (chronic kidney disease) stage 3, GFR 30-59 ml/min Diabetes Gout, tophaceous High risk medication use Hypercholesteremia Hypertension Immunization counseling Inflammatory arthritis Unstable angina Surgical History No history of previous surgery Family History Other CAD (coronary artery disease) Cancer Diabetes Gout Hypertension Denies family history of Rheumatoid arthritis Lupus Hyperlipidemia Chronic kidney disease (CKD) Lung disease Stroke Social History Smoking and tobacco/nicotine status: never used tobacco/nicotine Alcohol intake: never Substance/Drug Use: never Household members: spouse Marital status: Number of children: 3 Number of grandchildren: 3 service: No Current occupational status: retired 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 He is in not distress but short of breath NECK: Elevated JVD HEART: Regular S1 and S2. LUNGS: Bilateral generalized crackles on inspiration. ABDOMEN: Soft, mildly distended but nontender no guarding or rebound CENTRAL NERVOUS SYSTEM: Grossly nonfocal. Data 12/09/23 21:22 12/09/23 21:22 A&P Assessment and plan (1) Non-ST elevated myocardial infarction: Patient has possible acute coronary syndrome 3 days back, currently he is chest pain-free there is no ST elevation PA or arrhythmia, he appeared to be in decompensated systolic heart failure with volume overload status at this point there is no indication for taking him to the [facility] my plan is to admit him in the ICU with IV diuresis using Lasix 40 mg 3 times daily, IV heparin aspirin statin will be prescribed. Due to decompensated systolic heart failure and because of hypotension I would avoid beta-dany. Once he is euvolemic and renal function improved plan to proceed with left heart catheterization. Will keep him n.p.o. overnight. (2) Acute on chronic renal failure: Patient has underlying chronic kidney disease, currently worsening of renal function is secondary to cardiorenal etiology, hopefully with IV diuresis it will improve, will involve the renal input as well. (3) CHF NYHA class IV: IV Lasix 40 mg 3 times daily along with electrolyte balance. (4) Hypotension: In order to facilitate diuresis will start patient on Levophed his blood pressure fluctuates between 90-103 systolic, currently he is above 100 systolic. Further plan will be advised as per progress of the patient. Consult Attestations 2 Medical Necessity Statement: I have detailed discussion with the patient and his family I am expecting by bedside they both are in agreement. I am expecting his stay to cross more than 2 midnights Coding Level of Care Code Acute Code for [facility] Fwd Diagnoses Non-ST elevated myocardial infarction I21.4 Acute on chronic renal failure N17.9; N18.9 CHF NYHA class IV I50.9 Hypotension I95.9
[2023-12-09] MEDS: FUROsemide 10 mg/mL SDV 10mL 40 MG IVP (23:51)
--- NOTE | 2023-12-09 23:54 | P.HP_ITS ---
Providers/Chief Complaint 2 Primary Care Provider: Norma Freeman MD Chief Complaint: Chest pain History of Present Illness Emery Davenport is a 58 year old male with past medical history of hypertension, CKD, last known cr 1.9-2.1 diabetes mellitus who started to experience chest pain 3 days ago. States that he developed acute onset chest pain radiating into the jaw 9 out of 10, felt extremely fatigued, felt short of breath but did not seek medical attention at that time. Since onset of symptoms his shortness of breath has continued to get worse. He is short of breath now with minimal exertion. He was unable to lay flat due to the extent of being unable to use his CPAP at home. He was waking up at night feeling short of breath. He was brought into the ER tonight for the above symptoms. He was noted to be in hypoxic respiratory failure with O2 sat of 86% on room air. He was placed on 4L/min supplemental O2. Twelve-lead EKG showed incomplete right bundle branch block. Baseline troponin returned at 8000. Echocardiogram being performed at bedside right now showed an LVEF of 25 to 30% with lateral and apical wall akinesia. His IVC was noted to be dilated. Cardiology is currently assessing patient at bedside. Denies any nausea or vomiting. Review of Systems 2 General: Reports: 10 or more systems reviewed and unremarkable except in HPI and below Const: Denies: fever(s), chills or body aches Eyes: Denies: change in vision, blurry vision or photophobia ENMT: Reports: hoarseness; Denies: throat pain, enlarged tonsils, odynophagia or nasal congestion Card: Denies: chest pain, palpitations, irregular heart rhythm, edema, swelling of feet/ankles, lightheadedness, pre-syncope, dyspnea on exertion or orthopnea Resp: Denies: dyspnea, productive cough, non-productive cough, wheezing, stridor, pain on inspiration, change in phlegm color, hemoptysis or chest congestion GI: Denies: abdominal pain, nausea, vomiting, hematemesis, coffee ground emesis, dysphagia, heartburn, diarrhea, constipation, GI cramping, change in stool character, hematochezia or melena : Denies: flank pain, dysuria, urinary frequency, urinary urgency, urinary hesitancy or hematuria Musc: Denies: neck pain, back pain, extremity pain, joint swelling, joint warmth or deformity Neuro: Denies: headache(s), numbness in extremities, weakness in extremities, sensory changes, difficulty walking, frequent falls, dizziness, vertigo, behavioral changes, Slurred speech present or seizure-like activity Psych: Denies: anxiety, depression, suicidal ideation or homicidal ideation Endo: Denies: polyuria, polydipsia, tired all the time, cold intolerance or hot flashes Dean/Lymph: Denies: easy bruising or easy bleeding Medications/Allergies Home Medications Medication Instructions Recorded Confirmed Last Taken Type clonidine HCl 0.1 mg tablet 0.1 mg PO Q8H PRN hypertensive 04/07/21 12/14/22 08/11/22 Rx emergency #30 tabs febuxostat 80 mg tablet 80 mg PO DAILY #90 tabs 03/24/23 Unknown Rx empagliflozin 25 mg tablet See Rx Instructions .Route 05/14/23 Unknown Rx ([facility]) .COMPLEX #90 tabs prednisone 10 mg tablet See Rx Instructions .Route 05/19/23 Unknown Rx .COMPLEX PRN Pain #30 tabs prednisone 2.5 mg tablet 2.5 mg PO DAILY #90 tabs 05/19/23 Unknown Rx losartan 100 mg tablet See Rx Instructions .Route 09/04/23 Unknown Rx .COMPLEX #90 tabs omeprazole 20 mg capsule,delayed See Rx Instructions .Route 09/04/23 Unknown Rx release .COMPLEX #180 caps torsemide 10 mg tablet See Rx Instructions .Route 09/04/23 Unknown Rx .COMPLEX #90 tabs metformin 850 mg tablet See Rx Instructions .Route 09/28/23 Unknown Rx .COMPLEX #180 tabs carvedilol 6.25 mg tablet See Rx Instructions .Route 11/09/23 Unknown Rx .COMPLEX #180 tabs hydralazine 50 mg tablet See Rx Instructions .Route 11/09/23 Unknown Rx .COMPLEX #90 tabs nifedipine 90 mg tablet,extended See Rx Instructions .Route 11/22/23 Unknown Rx release 24 hr .COMPLEX #90 tabs Allergies Allergy/AdvReac Type Severity Reaction Status Date / Time allopurinol Allergy Unknown Verified 12/14/22 10:28 colchicine Allergy vomiting Verified 12/14/22 10:28 fenofibrate Allergy GI Verified 12/14/22 10:28 intolerance gemfibrozil Allergy unknown Verified 12/14/22 10:28 hydrochlorothiazide Allergy unknown Verified 12/14/22 10:28 indomethacin Allergy unknown Verified 12/14/22 10:28 lisinopril Allergy cough Verified 12/14/22 10:28 lovastatin Allergy unknown Verified 12/14/22 10:28 valsartan Allergy unknown Verified 12/14/22 10:28 PFSH Acute 2 PFSH: Medical History Abnormal stress test Abnormal myocardial perfusion imaging with prior infarct and [place]-infarct ischemia noted in the inferior and inferoseptal [place]. LV systolic function is normal Unstable angina Diabetes Hypertension Hypercholesteremia CKD (chronic kidney disease) stage 3, GFR 30-59 ml/min Immunization counseling High risk medication use Inflammatory arthritis Gout, tophaceous Surgical History No history of previous surgery Family History Other CAD (coronary artery disease) Cancer Diabetes Gout Hypertension Denies family history of Rheumatoid arthritis Lupus Hyperlipidemia Chronic kidney disease (CKD) Lung disease Stroke Social History Smoking and tobacco/nicotine status: never used tobacco/nicotine Alcohol intake: never Substance/Drug Use: never Household members: spouse Marital status: Number of children: 3 Number of grandchildren: 3 service: No Current occupational status: retired 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 [employer] Vitals/I&O/Wt Last Vital Signs Temp 98.0 F 12/09/23 20:49 Pulse 107 H 12/09/23 23:05 Resp 35 H 12/09/23 23:00 BP 97/74 12/09/23 23:05 Pulse Ox 89 L 12/09/23 23:05 O2 Del Method Room Air 12/09/23 20:49 O2 Flow Rate 6 12/09/23 22:01 Weight last 48 hrs Weight 101 kg Weight 97.522 kg Physical Exam 2 Narrative: General: tachypneic, unable to lay flat, prefers to lay propped up, AAO x 3 HEENT: PERRLA, pupils bilaterally equal and reactive, pallors not present Chest: crackles to auscultation B/L CVS: S1-S2 regular, no murmurs, no tachycardia, no gallops, no rubs Abdomen: Soft, nontender, no organomegaly, bowel sounds present Neuro: No focal deficits, no facial deformity, AO x3, power 5/5 in all limbs Data 12/09/23 21:22 12/09/23 21:22 Other Labs: XR/XR chest 1V portable [id number] IMPRESSION: Heterogeneous opacities at each lung base could reflect pneumonia, atelectasis, or changes of aspiration. A&P Assessment and plan (1) Non-ST elevated myocardial infarction: Patient presenting today with history of 3 days of chest pain, with progressively worsening dyspnea. EKG as noted above. Baseline troponin at 8000. Overall clinical picture compatible with NSTEMI Echocardiogram performed at bedside shows an LVEF of 25 to 30% with regional wall motion abnormalities. Cardiology at bedside currently assessing the patient. He has received aspirin 325 mg and a bolus dose of heparin. Will start heparin infusion, weight-based protocol Continue aspirin 81, patient chart notes listed allergy to statins. N.p.o. for possible angiogram Review of chart shows patient had an abnormal stress test dating back to 2021. Angiogram was deferred at the time due to CKD, patient was medically optimized. (2) CHF NYHA class IV: Chest x-ray showing bilateral infiltrates most consistent with pulmonary edema, elevated BNP more than 20,000, together with clinical symptoms of dyspnea on exertion, orthopnea and PND, suggestive of acute systolic heart failure Estimated EF 25 to 30% currently with regional wall motion abnormalities as noted above. Start Lasix 40 mg IV every 8 hours after discussion with cardiology Likely need concomitant pressors to be able to maintain blood pressure alongside diuresis. Strict I&O Monitor renal function with diuresis (3) Hypotension: Soft blood pressure, currently MAP ranging between 65-68 Suspect related to cardiogenic shock. Start Levophed infusion (4) Acute on chronic renal failure: Currently creatinine at 3.4, last known baseline between 1.9-2.4 currently likely related to poor renal perfusion. (5) Acute hypoxemic respiratory failure: Related to acute systolic heart failure (6) Coronary artery disease: (7) Diabetes: Insulin sliding scale (8) Hypertension: Hold all antihypertensives Plan DVT prophylaxis: Currently on a heparin drip which will suffice PUD prophylaxis Protonix 40 mg daily Full code Attestations 2 Medical Necessity Statement*: Greater than 2 midnight admission is anticipated for NSTEMI, cardiogenic shock, acute systolic heart failure needing heparin drip, IV diuresis, likely angiogram Critical Care Time: The high probability of a clinically significant, sudden or life threatening deterioration of the patient's [circulatory,respiratory] system(s) required my full and direct attention, intervention and personal management. The critical care time is as shown. This time is in addition to time spent performing any reported procedures but includes the following: [x] Data and vital sign review and interpretation [x] Patient assessment, examination and intervention [x] Documentation [x] Medication orders and management Critical Care Time (min): 60 Coding Level of Care Code Critical Care >/= 30 minutes Diagnoses Non-ST elevated myocardial infarction I21.4 CHF NYHA class IV I50.9 Hypotension I95.9 Acute on chronic renal failure N17.9; N18.9 Acute hypoxemic respiratory failure J96.01 Coronary artery disease I25.10 Diabetes E11.9 Hypertension I10
[2023-12-10] VITALS (9 sets, daily range): BP systolic 97–123; BP diastolic 74–86; PULSE 81–88; RESP 21–29; O2SAT 88–90
[2023-12-10 00:36] LABS: Troponin 5 2HR 8553 ng/L (0-15); Troponin 5 2HR Delta 103 ABS# (0-10)
[2023-12-10 00:41] LABS: Lactic Acid level (Lactate) 3.2 mmol/L (0.5-2.2)
[2023-12-10 00:41] LABS: Procalcitonin 0.81 ng/mL (0-0.5)
[2023-12-10] MEDS: morphine 4 mg/mL SDV 1 mL 2 MG IVP (00:47)
[2023-12-10] MEDS: ondansetron 2 mg/ML SDV 2 mL 4 MG IVP (00:54)
[2023-12-10] MEDS: heparin drip 25,000 UNIT/500 ML PREMIX 28 UNIT IV (01:26)
[2023-12-10] MEDS: heparin 5,000 unit/mL INJ 1 mL IVP (01:31)
[2023-12-10 02:11] LABS: ABG PCO2 32.7 mmHg (35-45); ABG PH Result 7.24 (7.35-7.45); Alveolar-Arterial Oxygen Gradi 4.6 mmHg (5-10); Arterial Blood Gas Hematocrit 42.4 % (42-52); Base Excess ABG -12.4 mmol/L (-2.0-2.0); Blood Gas Operator Identificat SAM; Blood Gas Sample Site Brachial, right; Blood Gas Sample Type Arterial; HCO3 ABG 13.9 mmol/L (22-26); HGB O2 Sat 90.9 % (95-100); Ionized Calcium Level - ABG 1.2 mmol/L (1.1-1.4); Methemoglobin 0.4 % (0.4-1.5); Oxygen Device NRB; Oxygen Saturation ABG 92.1; PO2 ABG 74.4 mmHg (80.0-100.0); Potassium Level - ABG 4.4 mmol/L (3.5-5.0); Total Hemoglobin 13.8 g/dL (14-18)
[2023-12-10] MEDS: fentaNYL 1,000 MCG/100 ML BAG 2.5 MCG IV (02:25)
--- NOTE | 2023-12-10 02:25 | PC.NURSE ---
Received verbal orders from Dr. Walsh to initiate versed and fentanyl drip for sedation post intubation.
--- NOTE | 2023-12-10 02:27 | XACV_ITS ---
Exam Room: 2 Ht: 178 cm Wt: 101 kg BSA: 2.26 m2 Gender: Male : 1965 Exam Priority: Routine Procedure(s): Procedure Description: Diagnostic procedure Procedure Description: Coronary Angiography Odilia WEINER; Diagnostic Cath Status: Emergency Diagnostic Findings * Please note that RCA was never engaged as we straight went head with left sided guide due to culprit LAD. * Left Main has no disease. * Circumflex has no disease. * Proximal Left Anterior Descending: total occlusion, LEXY: 3 flow. * Proximal Left Anterior Descending: total occlusion, LEXY: 3 flow. * First Obtuse Marginal Branch Segment: significant 80% stenosis, LEXY: 3 flow. * Coronary angiography shows right dominance. PCI Status: Emergency PCI Indication: NSTE - ACS Interventional Findings * Emery Davenport is a 58 year old male brought in by his with worsening of shortness of breath orthopnea and PND going on for the last 2 days. According to the patient 3 days ago he had severe chest pain radiating to neck and jaw 9 out of 10, he did not specifically tell his about it, he tried to rest that day, he felt very fatigued and did not do much next day however felt sore all over his chest. Since that episode he started noticing worsening of shortness of breath to the extent that he cannot walk 200 feet. Since this morning he complained of PND and orthopnea. He uses CPAP, despite of its use he was not able to lay flat in the bed therefore decided to come to the ER. From the ER parking lot to main door patient had to sit down to catch his breath. Twelve-lead EKG was suggestive of incomplete right bundle branch block and sinus tachycardia. High-sensitivity troponin came back 8000, he appeared to be in no acute on chronic renal failure with baseline creatinine 1.8 now increased to 3.5. I saw patient in the ER and requested bedside echocardiogram which was suggestive of severely depressed left ventricular ejection fraction 25 to 30% with lateral and apical wall akinesis. Anterior wall was severely hypokinesis. Left ventricle appeared to be moderately dilated, there appeared to be mild to moderate mitral valve regurgitation, IVC is dilated more than 2 cm which does not collapses during inspiration suggestive of high right-sided atrial pressure. Since patient is not in chest pain and because of the fact he may have completed infarct which was 72 hours ago while he is in decompensated systolic heart failure with pulmonary edema, we decided to admit patient to ICU for aggressive medical management including heparin IV diuresis with pressor to support blood pressure since systolic blood pressure fluctuates between 90-103. Plan once diuresed and reduce left ventricular end-diastolic pressure since he has completed infarct as patient is more than 72 hours when he had his chest pain and not having any more chest pain to take him to the Event Mgr. Patient was admitted to the ICU and getting diuresed however he had V-fib arrest from there he was resuscitated brought back to sinus rhythm and taken immediately to the Event Mgr, we proceeded with the Impella first to stabilize him hemodynamically and then performed the angiogram. Angiogram is as follows. #1 Left main has no significant stenosis #2 LAD is 100% ostially occluded #3 left circumflex is nondominant but appeared to have large moderate size and caliber obtuse marginal 1 which has 90% mid stenosisSince we straight went with left-sided guide because of suspicion of possible left main or LAD involvement RCA was not shot. During the procedure patient had multiple episode of cardiac arrest bradycardia asystole ventricular fibrillation treated with multiple rounds of CPR achieving ROSC most of the times in between we continued to work on the patient with placement of 2 overlapping drug-eluting stent after dilating ostial to mid LAD. Both stents were postdilated with noncompliant balloon. Good angiographic result with LEXY III flow was noted in the LAD. We then redirected our wire to obtuse marginal which was treated with balloon angioplasty followed by drug-eluting stent placement postdilated with noncompliant balloon. Please see the inventory for the details. Good angiographic result with LEXY-3 flow was restored however patient suffered another episodes of bradycardia and asystole, CPR was performed while patient continued to be on Impella. Despite of our utmost effort and multiple rounds of CPR we were not able to achieve ROSC at this time and patient was pronounced at the end of the procedure , please see detailed under main body of the Event Mgr documentation and prefabricated houses trimmer/code team note. Family was informed by myself his in the waiting area. She clearly understood and all questions were answered . She expressed her satisfaction with the treatment.Impella placement: Indication cardiogenic shock, status postcardiac arrest arrhythmias, LV severe dysfunction with complicated PCIPCI to ostial to mid LAD with 2 overlapping drug-eluting stents as defined abovePCI to mid obtuse marginal-1 with single drug-eluting stent postdilated with noncompliant balloon.Multiple rounds of CPR for cardiac arrest asystole ventricular tachycardia as per ACS protocol. * Proximal Left Anterior Descendin% stenosis treated with a MDT R BINTA 3.0X8 DANIEL. 0% residual stenosis, LEXY: 3 flow. * Proximal Left Anterior Descendin% stenosis treated with a AB TREK 2.50X12 RX BALLOON, AB TREK 2.50X12 RX BALLOON, MDT R BINTA 3.0X38 DANIEL, and MDT NC EUPHORA RX [id number] BALLOON. 0% residual stenosis, LEXY: 3 flow. * First Obtuse Marginal Branch Segment: 80% stenosis treated with a AB TREK 2.50X12 RX BALLOON, and MDT R BINTA 3.0X15 DANIEL. 0% residual stenosis, LEXY: 3 flow. Conclusions 1. Despite of Impella placement and fixing the culprit ostial to mid LAD lesion with presybeterian of LEXY-3 flow and mid obtuse marginal 1 lesion with excellent angiographic result patient since has completed infarct at home and a repairable possible muscle damaged heparin with severely depressed left ventricular ejection fraction he did not survive due to recurrent ventricular tachycardia V-fib asystole and bradycardia though prolonged multiple rounds of CPR and mechanical support through Impella was given. Unfortunately patient at the end of the case. 2. There is total occlusion coronary artery disease with one vessel disease. 3. Proximal Left Anterior Descending was treated with a Drug Eluting Stent. 4. Proximal Left Anterior Descending was treated with a Balloon, Balloon, Drug Eluting Stent, and Balloon. 5. First Obtuse Marginal Branch Segment was treated with a Balloon, and Drug Eluting Stent. Recommendations * Continue current medical management and risk factor modification. Diagnostic RX Recommendation: PCI w/o planned CABG Anticoagulation: Heparin Pressures Phase:Rest AO : 1 / 0 ( 0 ) @ 11:39:19 PM 130 / 74 ( 92 ) @ 11:39:19 PM 54 / 22 ( 24 ) @ 11:39:19 PM 72 / 32 ( 49 ) @ 11:39:19 PM 105 / 52 ( 71 ) @ 11:39:19 PM 70 / 62 ( 65 ) @ 11:39:19 PM / ( 18 ) @ 5:33:00 AM Procedural Details Identified patient by full name and date of as verbalized by the patient/guarantor. Does the consent match the physician's order: N/A Emergent; Informed Consent not obtained due to time critical life threat. Accurate & Complete Informed Consent: N/A Emergent; Informed Consent not obtained due to time critical life threat. If H&P is completed, is and addenduem needed: N/A Emergent; Informed Consent not obtained due to time critical life threat; If yes, is the addendum complete: N/A Emergent; Informed Consent not obtained due to time critical life threat. Visualize and Verify Site with Patient/Guarantor: N/A. Relevant Radiology Images available: No. Pre-op teaching completed and patient verbalized understanding. The risks, benefits, and alternatives of sedation and/or procedure were discussed by physician. The patient agrees to continue. Procedure started. [facility] Clinical Fraility Score: 8: Very Severely Frail. Event Mgr Indications: ACS <= 24 hours. Chest Pain Symptom Assessment: Typical Angina Symptoms. Correct patient, site and procedure confirmed by cath team. Cardiovascular Instability: Yes, if yes, Hemodynamic Instability. Current diagnosis: STEMI. IV Site on Arrival: 18 gauge in the left anticubital. IV Site on Arrival: TLC in the right groin. Physician notified. Baseline sample Acquired. HR: 49 BPM. 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 Physician arrived. Physician scrubbed in. Immediate Pre-Procedure Time Out. Correct Patient: N/A Emergent; Informed Consent not obtained due to time critical life threat; Correct Procedure: N/A Emergent; Informed Consent not obtained due to time critical life threat; Correct Site: N/A Emergent; Informed Consent not obtained due to time critical life threat; Correct Patient Position: N/A Emergent; Informed Consent not obtained due to time critical life threat; Correct Supplies: N/A Emergent; Informed Consent not obtained due to time critical life threat; Dried Flammable Prep: N/A Emergent; Informed Consent not obtained due to time critical life threat; Blood Products Available: N/A Emergent; Informed Consent not obtained due to time critical life threat;. Lidocaine 1% infiltrated to the right groin. Arterial access obtained. Code blue called. See code flowsheet. A Right femoral angiogram was performed to determine safe placement of impella. ROSC obtained. Pt arrived to lab with epi gtt at 1mcg/min, Norepi at 20mcg/min, Dopamine at 10mcg/kg/min, Versed at 1mg/hr , Fentanyl at 25mcg/hr. Lidocaine 1% infiltrated to the left groin. Arterial access obtained with micropuncture set. A 5 yi Angled Pig catheter in over wire. Code blue Called: see code flowsheet. Vasopressin gtt started at 0.1 units/min. Rosc obtained. Predilated with 8, 10, 12F impella dilator. Left groin 6fr sheath exchanged for 14fr impella sheath over exchange wire. Code blue called. See code flowsheet. Impella 0.18 wire in through sheath. Pig tail catheteter out. Rosc obtained. Impella CP device in over wire. Code called. See code flowsheet. Rosc obtained. Impella started. 6 yi XB 3.5 guide catheter was inserted over the wire though 6fr sheath right groin. ACT drawn. Results 193 seconds. Therapeutic limits - pre-heparin administration 90-150 seconds and monitoring heparin during a vascular procedure >250 seconds. Impella flow 3.7L/min. Runthrough guidewire was advanced through the guide catheter to lesion in the distal LAD. Inflation number : 1 A AB TREK 2.50X12 RX BALLOON was prepped and advanced across the Prox LAD , then inflated to 14 COLLEEN for 0:08 seconds. Balloon inserted to lesion in the ostial LAD. Balloon out over wire. Results checked. Inflation number : 2 A AB TREK 2.50X12 RX BALLOON was prepped and advanced across the Prox LAD , then inflated to 12 COLLEEN for 0:07 seconds. Inflation number: 3 The AB TREK 2.50X12 RX BALLOON was reinflated across the Prox LAD, to 12 COLLEEN for 0:09 seconds. Inflation number: 4 The AB TREK 2.50X12 RX BALLOON was reinflated across the Prox LAD, to 12 COLLEEN for 0:05 seconds. Inflation number: 5 The AB TREK 2.50X12 RX BALLOON was reinflated across the Prox LAD, to 12 COLLEEN for 0:06 seconds. Balloon out. Results checked. 5Fr Pronto aspiration catheter in over wire to LAD. Aspiration of LAD. Stent inserted to lesion in the prox LAD. Pronto catheter out. Transcutaneous pacing start. Output 42. Rate 100bpm. Inflation Number : 6 A MDT R BINTA 3.0X38 DANIEL -Lot Number#[id number] EXP 08-01-26 was prepped and advanced across the Prox LAD. The stent was deployed at 12 COLLEEN for 0:30 seconds. Stent balloon out over wire. Results checked. ACT drawn. Results out of range high results. Therapeutic limits - pre-heparin administration 90-150 seconds and monitoring heparin during a vascular procedure >250 seconds. Runthrough wire redirected to circumflex. Balloon inserted to lesion in the OM. Inflation number : 1 A AB TREK 2.50X12 RX BALLOON was prepped and advanced across the 1st Ob Mena , then inflated to 12 COLLEEN for 0:10 seconds. Inflation Number : 2 A MDT R BINTA 3.0X15 DANIEL -Lot Number#[id number] EXP 04-24-2024 was prepped and advanced across the 1st Ob Mena. The stent was deployed at 14 COLLEEN for 0:13 seconds. Stent balloon out over wire. Results checked. Runthrough wire redirected to LAD. Stent inserted to lesion in the ostial LAD. Inflation Number : 1 A MDT R BINTA 3.0X8 DANIEL -Lot Number#[id number] EXP 05-26-2024 was prepped and advanced across the Prox LAD1. The stent was deployed at 12 COLLEEN for 0:17 seconds. Stent balloon out over wire. Balloon inserted to lesion in the ostial LAD. Inflation number : 7 A MDT NC EUPHORA RX [id number] BALLOON was prepped and advanced across the Prox LAD , then inflated to 14 COLLEEN for 0:10 seconds. Inflation number: 8 The MDT NC EUPHORA RX 3.74I78WY BALLOON was reinflated across the Prox LAD, to 12 COLLEEN for 0:09 seconds. Balloon out. Results checked. Pronto aspiration catheter in over wire to LAD. Code Blue called. See code flowsheet. Time of called 0424. Admit Source: In Patient. Post-op diagnosis: Late ACS presentation with CHF and renal failure/Cardiogenic shock. Post revascularization cardiac arrest. Access Site Site: Right Femoral artery Sheath Size: 6 Fr Hemostasis Success: Unsuccessful Site: Left Femoral artery Sheath Size: 6 Fr Hemostasis Success: Unsuccessful Procedure Medications Start: 3:15 AM Stop: 3:15 AM Medication: Epinephrine Amount: 1 mg Route: I.V. Start: 3:15 AM Stop: 3:15 AM Medication: Atropine Amount: 1 mg Route: I.V. Start: 3:26 AM Stop: 3:26 AM Medication: Heparin Amount: 3000 units Route: I.V. Start: 3:23 AM Stop: 3:23 AM Medication: Heparin Amount: 7000 units Route: I.V. Start: 3:44 AM Stop: 3:44 AM Medication: Heparin Amount: 5000 units Route: I.V. Start: 3:46 AM Stop: 3:46 AM Medication: Aggrastat 12.5 mg/250 mL Amount: 51 ml Route: I.V. bolus Start: 3:46 AM Stop: 3:46 AM Medication: Aggrastat 12.5 mg/250 mL Amount: 18.4 ml/hr Route: I.V. bolus Start: 3:53 AM Stop: 3:53 AM Medication: Atropine Amount: 1 mg Route: I.V. Start: 3:53 AM Stop: 3:53 AM Medication: Epinephrine Amount: 1 mg Route: I.V. I, the attending physician, have reviewed and verified all procedure medications. Yes, all medications given per verbal order Report Signatures Finalized by Tiffany Hartley MD on 01/09/2024 08:05 PM
[2023-12-10] MEDS: midazolam hcl 100 MG/100 ML BAG IV (02:28)
[2023-12-10 02:47] LABS: Glucose Point of Care 349 mg/dL (70-110)
--- NOTE | 2023-12-10 02:50 | PM.ACPR ---
Procedure/Consent Time out: Time Out Performed: Yes Consent: Consent for Procedure: Consent obtained from patient Acute Procedures Central Line Placement: Right IJ: Time out performed: Yes Patient placed on monitor/pulse ox: Yes MD prep: mask, gown and gloves Central line prep: Povidone-Iodine 1%, Chlorhexidine scrub and sterile drapes applied Local anesthesia used: lidocaine 1% Amount of anesthesia used (ml): 5 Ultrasound used for placement: Yes Central line lumen inserted: triple Post procedure: sutured in place, good blood return, all ports aspirated, flushed, capped and sterile dressing applied Post procedure x-ray: other (N/A) Patient tolerated procedure: well and no complications Complications: none Epistaxis Control: Time out performed: Yes
--- NOTE | 2023-12-10 02:52 | P.PNCC_ITS ---
Critical Care Event Note The high probability of a clinically significant, sudden or life threatening deterioration of the patient's [cardiac,respiratory] system(s) required my full and direct attention, intervention and personal management. The critical care time is as shown. This time is in addition to time spent performing any reported procedures but includes the following: [x] Data and vital sign review and interpretation [x] Patient assessment, examination and intervention [x] Documentation [x] Medication orders and management Critical Care Time Code activated: Yes Critical Care Time (min): 90 Additional information about critical care time: Starting at ~1:47AM patient developed bradycardia and then asystole. Started CPR, received Epi, ROSC at 1:52AM, bradycardia with HR 40-50, BP 144/112. Initially able to state his name, answer basic questions, consented to femoral line. ABG with 7.24/32.7/74.4/13.9, sat 90.2%. 12 lead EKG taken. director of laboratory operations activated. received atropine x 2. Central line placed into right fem. Started dopamine infusion in addition to levophed infusion. At 02;11, developed PEA, started CPR, epi x 1, attained ROSC at 02:12, patient intubted by ER physician. Started with fentanyl and versed infusions post intubation, at 02: 29AM: BP 56/39, HR 70, added epinephrine infusion. CPR resumed at 2:34AM, received bicarb x 1 amp, epi, blood sugar: 349, epi x 1, attained ROSC at 2:40am and transferred to cheesemaking laborer. Coding Level of Care Code Acute Code for Chg Fwbrenden
--- NOTE | 2023-12-10 03:04 | ECG_ITS ---
[facility]: 2023-[facility]10 Pat Name: Emery Davenport Department: Room: ICU05 Gender: Male New Account Interviewer: : 1965 Requested By: Wendy Catherine Order Number: [id number] Reading MD: MARY RICHARDSON Measurements Intervals Manning Rate: 89 P: 47 NM: 144 QRS: -45 QRSD: 181 T: 132 QT: 381 QTc: 464 Interpretive Statements SINUS RHYTHM LEFT AXIS DEVIATION [QRS AXIS < -30] Right bundle branch block, anterolateral wall ST elevation Suggestive of injury/ischemia 12/09/2023 23:36:02, When compared to the previous EKG there is ST elevation in the anterior and lateral leads now consistent with injury/ischemia Left-axis deviation now present Electronically Signed On 12-11-2023 18:19:20 CDT by MARY RICHARDSON [email or web address]
--- NOTE | 2023-12-10 04:30 | PC.NURSE ---
[facility] Injection Molding Technician & he has released the body.
--- NOTE | 2023-12-10 04:32 | PC.NURSE ---
[facility] has been notified of patient .
--- NOTE | 2023-12-10 05:34 | P.DES_ITS ---
Discharge Providers DDS Date of Admission: 12/09/23 22:56 Date Summary Completed: 12/10/23 Attending Provider at Admission: Aleah Walsh MD Time of : 04:24 Attending Provider at Discharge: Aleah Walsh MD Pronouncing Clinician: Aleah Walsh Consults: Tiffany Hartley MD Primary Care Provider: Norma Freeman MD DS Diagnoses Hospital Diagnoses (1) Non-ST elevated myocardial infarction: (2) CHF NYHA class IV: (3) Hypotension: (4) Acute on chronic renal failure: (5) Acute hypoxemic respiratory failure: (6) Coronary artery disease: (7) Diabetes: (8) Hypertension: (9) Cardiogenic shock: Reason for Visit Reason for Visit Chest pain Summary Date and Time of Date of : 12/10/23 Time of : : Summary Summary: Emery Davenport was a 58 year old male with past medical history of hypertension, CKD, last known cr 1.9-2.1 diabetes mellitus who started to experience chest pain 3 days prior to current admission. chest pain was 9/10, radiating into the jaw, he felt extremely fatigued, short of breath but did not seek immediate medical attention at that time. Since onset of symptoms his shortness of breath continued to get worse. He was brought into the ER tonight worsening dyspnea. He was noted to be in hypoxic respiratory failure with O2 sat of 86% on room air. Twelve-lead EKG showed incomplete right bundle branch block. Baseline troponin returned at 8000. Echocardiogram showed an LVEF of 25 to 30% with lateral and apical wall akinesia. His IVC was noted to be dilated. Patient was hypotensive. He was disgnosed with NSTEMI, cardiogenic shock, pulmonary edema, acute systolic CHF. He was started on treatment with heparin gtt, vasopressors and iv diuresis. at ~1:47 AM, patient developed bradycardia and then asystole for which CPR was initiated and need to be continued twice before being taken to the cardiac cath lab manager. please see event note from this night for details. He underwent angiogram, was noted to have diffuse proximal LAD disease, had stents placed , had Impella placed. He needed to get CPR an additional 5 times in the cardiac cath lab manager. Please see cath cardiac cath lab manager notes for details. However in spite of these maximal resuscitative measures, he could not survive. His pupils were fixed/dilated, no reflexes noted, no spontaneous breathing, monitor tech showing aystole, no cardiac contractility. He was declared at 4:30Am Additional Data Confirmation of as documented by pronouncing clinician: no pulse, no respirations, no heart sounds and pupils fixed and dilated Family: at bedside Additional persons at bedside: nursing staff and other (multimedia coordinator) Was code activated?: Yes Autopsy requested?: No Advance directives?: No Hospice patient?: No Discharge Plan Discharge Patient Disposition: Condition: Stable Prescriptions: No Action febuxostat 80 mg tablet 80 mg PO DAILY Qty: 90 1RF Jardiance 25 mg tablet See Rx Instructions .ROUTE .COMPLEX Qty: 90 0RF Dose Instruction: TAKE ONE TABLET BY MOUTH each morning. Rx Instructions: TAKE ONE TABLET BY MOUTH each morning. prednisone 2.5 mg tablet 2.5 mg PO DAILY Qty: 90 0RF prednisone 10 mg tablet See Rx Instructions .ROUTE .COMPLEX PRN (Reason: Pain) Qty: 30 1RF Rx Instructions: TAKE ONE TO TWO TABLETS BY MOUTH DAILY FOR 3 TO 5 DAYS FOR JOINT PAIN FLARE. omeprazole 20 mg capsule,delayed release(DR/EC) See Rx Instructions .ROUTE .COMPLEX Qty: 180 0RF Dose Instruction: TAKE 1 CAPSULE BY MOUTH TWICE DAILY Rx Instructions: TAKE 1 CAPSULE BY MOUTH TWICE DAILY torsemide 10 mg tablet See Rx Instructions .ROUTE .COMPLEX Qty: 90 0RF Dose Instruction: TAKE 1 TABLET BY MOUTH DAILY Rx Instructions: TAKE 1 TABLET BY MOUTH DAILY losartan 100 mg tablet See Rx Instructions .ROUTE .COMPLEX Qty: 90 0RF Dose Instruction: TAKE ONE TABLET BY MOUTH DAILY. Rx Instructions: TAKE ONE TABLET BY MOUTH DAILY. metformin 850 mg tablet See Rx Instructions .ROUTE .COMPLEX Qty: 180 0RF Dose Instruction: TAKE ONE TABLET BY MOUTH TWICE DAILY Rx Instructions: TAKE ONE TABLET BY MOUTH TWICE DAILY hydralazine 50 mg tablet See Rx Instructions .ROUTE .COMPLEX Qty: 90 0RF Dose Instruction: TAKE ONE TABLET BY MOUTH THREE TIMES DAILY. Rx Instructions: TAKE ONE TABLET BY MOUTH THREE TIMES DAILY. carvedilol 6.25 mg tablet See Rx Instructions .ROUTE .COMPLEX Qty: 180 0RF Dose Instruction: TAKE 1 TABLET BY MOUTH TWICE DAILY MUST TAKE WITH A MEAL/FOOD Rx Instructions: TAKE 1 TABLET BY MOUTH TWICE DAILY MUST TAKE WITH A MEAL/FOOD nifedipine 90 mg tablet extended release 24hr See Rx Instructions .ROUTE .COMPLEX Qty: 90 0RF Dose Instruction: TAKE ONE TABLET BY MOUTH DAILY. Rx Instructions: TAKE ONE TABLET BY MOUTH DAILY. clonidine HCl 0.1 mg tablet 0.1 mg PO Q8H PRN (Reason: hypertensive emergency) Qty: 30 0RF Rx Instructions: Despite hydralazine and nifedipine if blood pressure > 180/100mmhg then take clonidine Referrals: Norma Freeman MD [Primary Care Provider] - Patient Instructions: Opioid Safety DS Attestations Time Spent in /Discharge Care*: critical care time Critical Care Time (min): 45 Quality - AMI: AMI present?: Yes Quality - Stroke: CVA present?: No Quality - VTE: VTE present?: No Coding Level of Care Code Acute Code for g Fwd Diagnoses Non-ST elevated myocardial infarction I21.4 CHF NYHA class IV I50.9 Hypotension I95.9 Acute on chronic renal failure N17.9; N18.9 Acute hypoxemic respiratory failure J96.01 Coronary artery disease I25.10 Diabetes E11.9 Hypertension I10 Cardiogenic shock R57.0
--- NOTE | 2023-12-10 05:47 | PC.NURSE ---
Addendum entered by JUAN Pimentel 12/10/23 06:00: Witnessed waste of 90 mL fentanyl and 87 mL of versed. Original Note: Waste 90 ml of fentanyl and 87 ml of versed wasted with VANNESA Roche.
--- NOTE | 2023-12-10 07:15 | PC.NURSE ---
Addendum entered by JUAN Pimentel 12/10/23 07:18: See code sheet for additional medication and intervention times. Original Note: police department secretary alerted this nurse of patient displaying bradycardia on the monitor. Upon entering room patient was found unresponsive in the bed and no pulse was found on palpation. Compressions were started and code blue called at 0147. Intubation was achieved at 02:23. Patient left ICU for supervisor laboratory with ROSC achieved at 0243.
[2023-12-10] MEDS: succinylcholine 20 mg/mL SDV 10mL 100 MG IVP (07:21)
[2023-12-10] MEDS: etomidate 2 mg/mL INJ SDV 10 mL 20 MG IVP (07:24)
[2023-12-10] MEDS: EPINEPHrine 2.5 MG in sodium chloride 0.9% 250 ML 6.06 MG IV (07:27)
--- NOTE | 2023-12-10 09:37 | PC.NURSE ---
PT TAKEN TO [place] AND REFRIDGERATION TIME IS 3745 ON 12/10/23. MTS WAS NOTIFIED.
--- NOTE | 2023-12-10 17:32 | PC.NURSE ---
[facility] HERE TO TRANSPORT PT AT 1725 WITH ALL DOCUMENTATIONS GIVEN TO MICE RAISER. FAMILY NOTIFIED OF TRANSFER PER MRS. GARCIA REQUEST.
== END 2023-12-10 04:24 | disposition expired | DRG 216 ==
LOC: ER 21:42 → ICU 22:57
PROVIDERS: Internal Medicine Cardiovascular Disease; Admitting Provider Student in an Organized Health Care Education/Training Program; Emergency Provider Emergency Medicine; PCP Family Medicine; Visit Provider Student in an Organized Health Care Education/Training Program
PROC: 02HA3RJ Insertion of Short-term External Heart Assist System into Heart, Intraoperative, Percutaneous Approach (ICD-10-PCS; principal; 2023-12-10 03:00)
PROC: 02HA3RJ Insertion of Short-term External Heart Assist System into Heart, Intraoperative, Percutaneous Approach (ICD-10-PCS; 2023-12-10 03:00)
DX: I21.4 Non-ST elevation (NSTEMI) myocardial infarction (principal); I50.21 Acute systolic (congestive) heart failure; J96.01 Acute respiratory failure with hypoxia; I13.0 Hypertensive heart and chronic kidney disease with heart failure and stage 1 through stage 4 chronic kidney disease, or unspecified chronic kidney disease; N17.9 Acute kidney failure, unspecified; N18.9 Chronic kidney disease, unspecified; I25.10 Atherosclerotic heart disease of native coronary artery without angina pectoris; E11.22 Type 2 diabetes mellitus with diabetic chronic kidney disease; Z79.84 Long term (current) use of oral hypoglycemic drugs; I95.9 Hypotension, unspecified; R57.0 Cardiogenic shock; I45.10 Unspecified right bundle-branch block
CPT/HCPCS: 0241U; 33990; 36415; 36416; 36600; 71045; 80051; 80053; 82330; 82805; 82962; 83605; 83880; 84145; 84484; 85025; 85347; 85378; 85610; 85730; 86140; 93005; 93306; 93454; 96374; 96375; 99285; C1725; C1757; C1769; C1779; C1874; C1887; C1894; C9600; C9601; J0171; J0330; J1644; J1940; J2250; J2270; J2405; J3010; J3490; J7030; Q9967